=== PATIENT | female | born 1970 | race Two or more races ===

== ENCOUNTER 2022-03-08 10:27 | Emergency (ER) | payer MEDICARE, MEDICAID ==
[~2022-03-08] VITALS: Ht 154.9 cm; Wt 109.1 kg
[~2022-03-08 10:27] MED LIST: ASPI81TA52 PO; FURO40TA4 PO; INSU100C10 SQ; INSU100V9 SQ; LORA10TA7 PO; LOSA25TA96 PO; MECL-159 PO; MYCO500T PO; PANT-47 PO; PRED5TAB PO; TACR1CAP24 PO
[2022-03-08 10:57] LABS: BASOPHILS % (AUTO) 0.5 % (0-1); EOSINOPHILS # (AUTO) 0.1 X10'3 (0-0.9); EOSINOPHILS % (AUTO) 1.8 % (0-6); HEMATOCRIT 39.4 % (35.0-45.0); HEMOGLOBIN 13.3 g/dl (12.0-16.0); LYMPHOCYTES # (AUTO) 1.2 X10'3 (1.1-4.8); MEAN CORPUSCULAR HEMOGLOBIN 29.7 PG (27.0-31.0); MEAN CORPUSCULAR HGB CONC 33.6 g/dL (33.0-36.5); MEAN CORPUSCULAR VOLUME 88.4 FL (78-98); MEAN PLATELET VOLUME 8.5 FL (7.4-10.4); MONOCYTES # (AUTO) 0.5 X10'3 (0-0.9); NEUTROPHILS # (AUTO) 6.6 X10'3 (1.8-7.7); NEUTROPHILS % (AUTO) 77.7 % (42-75); PLATELET COUNT 315 X10'3 (140-440); RED BLOOD COUNT 4.46 X10'6 (4.20-5.60); RED CELL DISTRIBUTION WIDTH 14.5 % (11.5-14.5); WHITE BLOOD COUNT 8.5 X10'3 (4.5-11.0)
[2022-03-08 11:04] LABS: ALANINE AMINOTRANSFERASE 19 U/L (12-78); ALBUMIN/GLOBULIN RATIO 0.7 (1.1-1.5); ALKALINE PHOSPHATASE 123 IU/L (46-116); ANION GAP 9 (8-16); ASPARTATE AMINO TRANSFERASE 16 U/L (10-37); BILIRUBIN,TOTAL 0.4 MG/DL (0.1-1.0); BLOOD UREA NITROGEN 34 MG/DL (7-18); BUN/CREATININE RATIO 27.9 (6.6-38.0); CALCIUM 8.6 MG/DL (8.5-10.1); CHLORIDE 96 MMOL/L (99-107); CREATININE 1.22 MG/DL (0.40-0.90); GLUCOSE 237 MG/DL (70-104); LIPASE 90 U/L (73-393); POTASSIUM 3.9 MMOL/L (3.5-5.1); SODIUM 131 MMOL/L (135-145); TOTAL CARBON DIOXIDE 25.8 MMOL/L (24-32); TOTAL PROTEIN 7.6 G/DL (6.4-8.2); eGFR 46 ML/MIN
[2022-03-08 11:06] LABS: CLARITY,URINE TURBID (Clear); COLOR,URINE STRAW (Yellow); GLUCOSE, URINE NEGATIVE (Neg); KETONES,URINE NEGATIVE (Neg); LEUKOCYTE ESTERASE ,URINE LARGE (Neg); NITRITES, URINE NEGATIVE (Neg); OCCULT BLOOD,URINE SMALL (Neg); PROTEIN,URINE 100 mg/dl (Neg); UA COLLECTION TYPE CLN CATCH MIDSTREAM; UROBILINOGEN,URINE 0.2 E.U/dL (0.2-1.0)
[2022-03-08 11:19] VITALS: BP 148/76
[2022-03-08 11:23] LABS: WBC,URINE TNTC /HPF (0-4)
[2022-03-08 11:26] LABS: BACTERIA,URINE 4+ /HPF (Neg); RBC,URINE 20-50 /HPF (0-2)
[2022-03-08 11:27] LABS: SQUAMOUS EPITHELIAL CELL,UR MODERATE /LPF (FEW)
[2022-03-08 11:28] LABS: HYALINE CASTS 0-3 /LPF (NEGATIVE)
[2022-03-08] MEDS ORDERED: acetaminophen 325mg tablet PO ONE (12:10)
[2022-03-08] MEDS ORDERED: CEPH500C2 PO (12:20)
[2022-03-08] MEDS ORDERED: cephalexin 500mg capsule PO ONE (12:25)
--- NOTE | 2022-03-08 13:03 | NUR ---
Family returned call. Nephew will be coming to sisal picker pt in 15min.
== END 2022-03-08 13:58 | disposition home or self-care (01) ==
LOC: ER 10:27
DX: N39.0 Urinary tract infection, site not specified (principal); R51.9 Headache, unspecified; R10.32 Left lower quadrant pain; E11.9 Type 2 diabetes mellitus without complications; I10 Essential (primary) hypertension; Z98.890 Other specified postprocedural states; Z88.5 Allergy status to narcotic agent; Z91.040 Latex allergy status; Z88.8 Allergy status to other drugs, medicaments and biological substances; Z79.82 Long term (current) use of aspirin; Z79.2 Long term (current) use of antibiotics; Z79.4 Long term (current) use of insulin; Z79.899 Other long term (current) drug therapy
CPT/HCPCS: 36415; 80053; 81001; 82948; 83690; 85025; 87077; 87088; 87186; 99284

== ENCOUNTER 2022-03-28 10:13 | Emergency (ER) | payer MEDICARE, MEDICAID ==
[~2022-03-28] VITALS: Ht 157.5 cm; Wt 100.0 kg
[2022-03-28] MEDS ORDERED: ondansetron/PF 4mg/2ml inj IV ONE (11:05)
[2022-03-28] MEDS ORDERED: normal saline 1000ml 1,000 ML IV ONE (11:05)
[2022-03-28] MEDS ORDERED: fentaNYL/PF 50MCG/1 ML 2ML syringe IV ONE (11:05)
[2022-03-28 11:26] LABS: BASOPHILS % (AUTO) 0.5 % (0-1); EOSINOPHILS # (AUTO) 0.2 X10'3 (0-0.9); EOSINOPHILS % (AUTO) 2.2 % (0-6); HEMATOCRIT 42.2 % (35.0-45.0); HEMOGLOBIN 14.1 g/dl (12.0-16.0); LYMPHOCYTES # (AUTO) 1.7 X10'3 (1.1-4.8); LYMPHOCYTES % (AUTO) 19.2 % (21-51); MEAN CORPUSCULAR HEMOGLOBIN 29.9 PG (27.0-31.0); MEAN CORPUSCULAR HGB CONC 33.4 g/dL (33.0-36.5); MEAN CORPUSCULAR VOLUME 89.3 FL (78-98); MEAN PLATELET VOLUME 9.1 FL (7.4-10.4); MONOCYTES # (AUTO) 0.6 X10'3 (0-0.9); MONOCYTES % (AUTO) 6.9 % (2-12); NEUTROPHILS # (AUTO) 6.4 X10'3 (1.8-7.7); NEUTROPHILS % (AUTO) 71.2 % (42-75); PLATELET COUNT 336 X10'3 (140-440); RED BLOOD COUNT 4.72 X10'6 (4.20-5.60); RED CELL DISTRIBUTION WIDTH 14.1 % (11.5-14.5)
--- NOTE | 2022-03-28 11:33 | NUR ---
pt to ct
[2022-03-28 11:39] LABS: ALANINE AMINOTRANSFERASE 21 U/L (12-78); ALBUMIN 3.4 G/DL (3.4-5.0); ALBUMIN/GLOBULIN RATIO 0.8 (1.1-1.5); ALKALINE PHOSPHATASE 109 IU/L (46-116); ANION GAP 10 (8-16); ASPARTATE AMINO TRANSFERASE 15 U/L (10-37); BILIRUBIN,TOTAL 0.4 MG/DL (0.1-1.0); BLOOD UREA NITROGEN 47 MG/DL (7-18); BUN/CREATININE RATIO 34.6 (6.6-38.0); CALCIUM 9.2 MG/DL (8.5-10.1); CHLORIDE 101 MMOL/L (99-107); CREATININE 1.36 MG/DL (0.40-0.90); GLUCOSE 204 MG/DL (70-104); POTASSIUM 3.9 MMOL/L (3.5-5.1); SODIUM 135 MMOL/L (135-145); TOTAL CARBON DIOXIDE 24.4 MMOL/L (24-32); TOTAL PROTEIN 7.8 G/DL (6.4-8.2); eGFR 41 ML/MIN
[2022-03-28 11:42] LABS: LIPASE 94 U/L (73-393)
[2022-03-28 11:43] LABS: CLARITY,URINE CLEAR (Clear); COLOR,URINE YELLOW (Yellow); GLUCOSE, URINE NEGATIVE (Neg); KETONES,URINE NEGATIVE (Neg); LEUKOCYTE ESTERASE ,URINE NEGATIVE (Neg); NITRITES, URINE NEGATIVE (Neg); OCCULT BLOOD,URINE NEGATIVE (Neg); PROTEIN,URINE NEGATIVE (Neg); UROBILINOGEN,URINE 0.2 E.U/dL (0.2-1.0)
[2022-03-28 11:48] LABS: UA COLLECTION TYPE STRAIGHT CATH
--- NOTE | 2022-03-28 11:48 | NUR ---
pt back from ct
[2022-03-28] MEDS ORDERED: ONDA4TAB12 PO (13:35)
--- NOTE | 2022-03-28 13:45 | NUR ---
us at bedside
[2022-03-28] MEDS ORDERED: MECL-226 PO ×2 (14:10)
[2022-03-28 14:34] VITALS: BP 157/84
== END 2022-03-28 14:36 | disposition home or self-care (01) ==
LOC: ER 10:14
DX: R10.84 Generalized abdominal pain (principal); R51.9 Headache, unspecified; E86.0 Dehydration; E11.9 Type 2 diabetes mellitus without complications; I10 Essential (primary) hypertension; Z88.8 Allergy status to other drugs, medicaments and biological substances; Z88.5 Allergy status to narcotic agent; Z91.040 Latex allergy status; Z79.899 Other long term (current) drug therapy
CPT/HCPCS: 36415; 70450; 71045; 74176; 76770; 76776; 80053; 81003; 83605; 83690; 84484; 85025; 85610; 87040; 96361; 96374; 96375; 99285; J2405; J3010; J7030

== ENCOUNTER 2022-03-30 03:21 | Inpatient (IN) | payer MEDICARE, MEDICAID ==
[~2022-03-30] VITALS: Ht 154.9 cm; Wt 100.0 kg
[~2022-03-30 03:21] MED LIST changes: +MECL-226 PO
[2022-03-30] MEDS ORDERED: normal saline 1000ml 1,000 ML IV ONE (03:30)
[2022-03-30] MEDS ORDERED: pantoprazole 40MG/NS 100ML BAG 100 ML IV ONE (03:40)
[2022-03-30] MEDS ORDERED: ondansetron/PF 4mg/2ml inj IV ONE (03:40)
[2022-03-30] MEDS ORDERED: famotidine/PF 10 mg/ml inj IV ONE (03:40)
[2022-03-30] MEDS ORDERED: acetaminophen 325mg tablet PO ONE (03:45)
[2022-03-30 04:00] LABS: BASOPHILS # (AUTO) 0.1 X10'3 (0-0.2); BASOPHILS % (AUTO) 0.3 % (0-1); EOSINOPHILS % (AUTO) 0.3 % (0-6); HEMATOCRIT 40.8 % (35.0-45.0); HEMOGLOBIN 13.4 g/dl (12.0-16.0); LYMPHOCYTES # (AUTO) 0.4 X10'3 (1.1-4.8); LYMPHOCYTES % (AUTO) 2.7 % (21-51); MEAN CORPUSCULAR HEMOGLOBIN 29.2 PG (27.0-31.0); MEAN CORPUSCULAR HGB CONC 32.7 g/dL (33.0-36.5); MEAN CORPUSCULAR VOLUME 89.2 FL (78-98); MEAN PLATELET VOLUME 9.1 FL (7.4-10.4); MONOCYTES # (AUTO) 0.8 X10'3 (0-0.9); MONOCYTES % (AUTO) 5.2 % (2-12); NEUTROPHILS # (AUTO) 14.4 X10'3 (1.8-7.7); NEUTROPHILS % (AUTO) 91.5 % (42-75); PLATELET COUNT 298 X10'3 (140-440); RED BLOOD COUNT 4.58 X10'6 (4.20-5.60); RED CELL DISTRIBUTION WIDTH 14.2 % (11.5-14.5); WHITE BLOOD COUNT 15.8 X10'3 (4.5-11.0)
[2022-03-30 04:08] LABS: ALANINE AMINOTRANSFERASE 29 U/L (12-78); ALBUMIN 3.3 G/DL (3.4-5.0); ALBUMIN/GLOBULIN RATIO 0.8 (1.1-1.5); ALKALINE PHOSPHATASE 112 IU/L (46-116); ANION GAP 12 (8-16); BILIRUBIN,TOTAL 0.9 MG/DL (0.1-1.0); BLOOD UREA NITROGEN 39 MG/DL (7-18); BUN/CREATININE RATIO 25.8 (6.6-38.0); CHLORIDE 98 MMOL/L (99-107); CREATININE 1.51 MG/DL (0.40-0.90); GLUCOSE 243 MG/DL (70-104); SODIUM 131 MMOL/L (135-145); TOTAL PROTEIN 7.5 G/DL (6.4-8.2); eGFR 36 ML/MIN
[2022-03-30 04:11] LABS: LIPASE 63 U/L (73-393)
[2022-03-30 04:25] LABS: POTASSIUM 4.1 MMOL/L (3.5-5.1)
[2022-03-30 04:27] LABS: ASPARTATE AMINO TRANSFERASE 45 U/L (10-37)
[2022-03-30] MEDS ORDERED: meclizine 12.5mg tablet PO ONE (04:40)
[2022-03-30 04:44] LABS: URINE HCG NEGATIVE (NEG)
[2022-03-30 05:03] LABS: CLARITY,URINE CLOUDY (Clear); COLOR,URINE YELLOW (Yellow); GLUCOSE, URINE NEGATIVE (Neg); KETONES,URINE NEGATIVE (Neg); LEUKOCYTE ESTERASE ,URINE LARGE (Neg); NITRITES, URINE NEGATIVE (Neg); OCCULT BLOOD,URINE MODERATE (Neg); PH,URINE 5.5 (4.8-8.0); PROTEIN,URINE 100 mg/dl (Neg); UROBILINOGEN,URINE 0.2 E.U/dL (0.2-1.0)
[2022-03-30 05:16] LABS: UA COLLECTION TYPE NON-SPECIFIED
[2022-03-30 05:17] LABS: WBC,URINE TNTC /HPF (0-4)
[2022-03-30 05:18] LABS: BACTERIA,URINE 3+ /HPF (Neg); MUCUS STRANDS NONE SEEN /LPF (Neg); SQUAMOUS EPITHELIAL CELL,UR FEW /LPF (FEW)
[2022-03-30] MEDS ORDERED: MECL-159 PO (10:28)
[2022-03-30] MEDS ORDERED: ondansetron 4mg rapidly disintigrating tab PO PRN (11:50)
[2022-03-30] MEDS ORDERED: magnesium 4gm in 100ml NS 100 ML IV PRN (11:50)
[2022-03-30] MEDS: normal saline 1000ml 1,000 ML IV SCH ×2 (11:50→21:15)
[2022-03-30] MEDS ORDERED: magnesium 2GM in 50ml NS 50 ML IV PRN (11:50)
[2022-03-30] MEDS ORDERED: potassium CL 10mEq/100ml bag 100 ML IV PRN (11:50)
[2022-03-30] MEDS ORDERED: acetaminophen 650mg rectal suppository RC PRN (11:50)
[2022-03-30] MEDS ORDERED: magnesium hydroxide 30ml (MOM) UD suspension PO PRN (11:50)
[2022-03-30] MEDS ORDERED: mag hydrox/Alum hydrox/simeth 30ml oral suspension PO PRN (11:50)
[2022-03-30] MEDS ORDERED: cefTRIAXone 1g/NS 100ml IVPB 100 ML IV ONE (11:50)
[2022-03-30] MEDS ORDERED: POTASSIUM BICARB 20meq eff tab 20 MEQ TABLET.EFF PO PRN ×2 (11:50)
[2022-03-30] MEDS ORDERED: HYDROcodone/acetaminophen 5mg/325mg tablet PO PRN (11:50)
[2022-03-30] MEDS ORDERED: acetaminophen 325mg tablet PO PRN ×2 (11:50)
[2022-03-30] MEDS ORDERED: magnesium Cl slow-release 64mg tablet PO PRN (11:50)
[2022-03-30 12:33] LABS: MAGNESIUM 1.7 MG/DL (1.5-2.4)
[2022-03-30 12:40] LABS: POTASSIUM 4.5 MMOL/L (3.5-5.1)
[2022-03-30] MEDS ORDERED: PRE5T PO (13:36)
[2022-03-30] MEDS ORDERED: DEXTROSE 15 GM of carb/4 tabs (each vial/BOTTLE has 4 tablets) PO PRN (13:45)
[2022-03-30] MEDS ORDERED: glucagon, human recombinant 1mg kit SUBCUT PRN (13:45)
[2022-03-30] MEDS ORDERED: MESSAGE TO PHARMACY PO ONE (13:45)
[2022-03-30] MEDS ORDERED: dextrose 50%-water 50ml dispensing syringe IV PRN ×2 (13:45)
[2022-03-30 15:28] LABS: HEMOGLOBIN A1C 6.3 % (4.5-6.2)
[2022-03-30] MEDS: K and/or MAG REPLACEMENT MC SCH (19:31)
[2022-03-30] MEDS ORDERED: temazepam 15mg capsule PO PRN (21:00)
[2022-03-30] MEDS ORDERED: insulin glargine (Lantus) pen - multi-dose SQ SCH ×2 (21:00)
[2022-03-30] MEDS: tacrolimus anhydrous 1mg capsule PO SCH (21:13)
[2022-03-30] MEDS: docusate sod 100mg capsule PO SCH (21:13)
[2022-03-30] MEDS: mycophenolate mofetil 250mg capsule PO SCH (21:14)
[2022-03-30] MEDS: heparin, porcine 5000 units/ml vial SQ SCH (21:15)
[2022-03-30] MEDS: insulin Lispro (HumaLOG) vial - multi-dose SQ SCH (21:41)
--- NOTE | 2022-03-30 22:00 | NUR ---
Patient cleaned up, replaced bedding with clean linens, provided warm blankets and fresh water.
[2022-03-31 01:46] LABS: BASOPHILS % (AUTO) 0.3 % (0-1); EOSINOPHILS # (AUTO) 0.1 X10'3 (0-0.9); EOSINOPHILS % (AUTO) 0.5 % (0-6); HEMATOCRIT 36.2 % (35.0-45.0); HEMOGLOBIN 12.1 g/dl (12.0-16.0); LYMPHOCYTES % (AUTO) 6.6 % (21-51); MEAN CORPUSCULAR HEMOGLOBIN 30.1 PG (27.0-31.0); MEAN CORPUSCULAR HGB CONC 33.4 g/dL (33.0-36.5); MEAN PLATELET VOLUME 8.8 FL (7.4-10.4); MONOCYTES # (AUTO) 1.1 X10'3 (0-0.9); MONOCYTES % (AUTO) 7.7 % (2-12); NEUTROPHILS # (AUTO) 12.5 X10'3 (1.8-7.7); NEUTROPHILS % (AUTO) 84.9 % (42-75); PLATELET COUNT 241 X10'3 (140-440); RED BLOOD COUNT 4.02 X10'6 (4.20-5.60); WHITE BLOOD COUNT 14.7 X10'3 (4.5-11.0)
[2022-03-31 02:06] LABS: ALANINE AMINOTRANSFERASE 25 U/L (12-78); ALBUMIN 2.5 G/DL (3.4-5.0); ALBUMIN/GLOBULIN RATIO 0.7 (1.1-1.5); ALKALINE PHOSPHATASE 101 IU/L (46-116); ANION GAP 10 (8-16); ASPARTATE AMINO TRANSFERASE 52 U/L (10-37); BILIRUBIN,TOTAL 0.5 MG/DL (0.1-1.0); BLOOD UREA NITROGEN 36 MG/DL (7-18); BUN/CREATININE RATIO 24.2 (6.6-38.0); CALCIUM 8.1 MG/DL (8.5-10.1); CHLORIDE 105 MMOL/L (99-107); CREATININE 1.49 MG/DL (0.40-0.90); GLUCOSE 281 MG/DL (70-104); POTASSIUM 3.9 MMOL/L (3.5-5.1); SODIUM 134 MMOL/L (135-145); TOTAL CARBON DIOXIDE 19.1 MMOL/L (24-32); TOTAL PROTEIN 6.3 G/DL (6.4-8.2); eGFR 36 ML/MIN
--- NOTE | 2022-03-31 03:18 | NUR ---
Patient placed on bed cortez, taken off, and cleaned up. Moved from ER rponca and onto hospital bed.
[2022-03-31] MEDS: piperacillin/tazo 3.375gm/50ml 50 ML IV SCH ×3 (06:06→21:57)
[2022-03-31] MEDS ORDERED: cefTRIAXone 1g/NS 100ml IVPB 100 ML IV SCH (08:00)
[2022-03-31] MEDS: predniSONE 5mg tablet PO SCH (08:05)
[2022-03-31] MEDS: aspirin 81mg, enteric-coated 1 TAB TABLET.DR PO SCH (08:05)
[2022-03-31] MEDS: pantoprazole 40mg Tablet.DR PO SCH (08:05)
[2022-03-31] MEDS: furosemide 40mg tablet PO SCH (08:06)
[2022-03-31] MEDS: docusate sod 100mg capsule PO SCH ×2 (08:06→20:57)
[2022-03-31] MEDS: heparin, porcine 5000 units/ml vial SQ SCH ×2 (08:09→21:00)
[2022-03-31] MEDS: losartan 25mg tablet PO SCH (08:10)
[2022-03-31] MEDS: loratadine 10mg tablet PO SCH (08:10)
[2022-03-31] MEDS: tacrolimus anhydrous 1mg capsule PO SCH ×2 (08:12→20:58)
[2022-03-31] MEDS: normal saline 1000ml 1,000 ML IV SCH ×2 (08:12→19:54)
[2022-03-31] MEDS: K and/or MAG REPLACEMENT MC SCH ×2 (08:31→20:00)
[2022-03-31 09:05] VITALS: BP 150/69
[2022-03-31] MEDS: mycophenolate mofetil 250mg capsule PO SCH ×2 (09:35→20:58)
[2022-03-31] MEDS: insulin Lispro (HumaLOG) vial - multi-dose SQ SCH ×3 (10:43→17:27)
[2022-03-31] MEDS: insulin glargine (Lantus) pen - multi-dose SQ SCH (10:49)
--- NOTE | 2022-03-31 10:50 | NUR ---
New orders from Dr. Rodriguez to change timing of lantus administration to every morning.
--- NOTE | 2022-03-31 10:55 | NUR ---
taken at 0900 by NATALI Wilkes. Addendum: 03/31/22 at 1056 by Jenn Dodge RN Amended: Links added.
[2022-03-31] MEDS ORDERED: bisacodyl 10mg suppository rectal RC STA (12:25)
[2022-03-31 12:30] VITALS: BP 147/69
[2022-03-31 15:58] VITALS: BP 141/70
--- NOTE | 2022-03-31 18:30 | NUR ---
Transported patient to Ortho/Neuro room 4824D. Report given to Beatris STEWART at the bedside. Beatris assumed care.
--- NOTE | 2022-03-31 19:00 | NUR ---
Pt. arrived on the floor via hospital bed accompanied by Jenn STEWART. Pt. A & O at this time denies c/o pain. Call light within reach and bed in low position. Addendum: 03/31/22 at 1936 by Beatris Jett RN Amended: Links added.
[2022-03-31] MEDS: cefepime 1GM/NS ADD-VANTAGE 100 ML IV SCH (20:57)
[2022-03-31 22:00] VITALS: BP 153/53
[2022-04-01] MEDS: normal saline 1000ml 1,000 ML IV SCH ×2 (03:50→20:23)
[2022-04-01] MEDS: piperacillin/tazo 3.375gm/50ml 50 ML IV SCH (04:25)
[2022-04-01 05:30] VITALS: BP 163/73
--- NOTE | 2022-04-01 06:30 | NUR ---
Problems reprioritized. Patient report given, questions answered & plan of care reviewed with Thea. Addendum: 04/01/22 at 0644 by Beatris Jett RN Amended: Links added.
--- NOTE | 2022-04-01 06:30 | NUR ---
Patient in room ORTHO 4012. I have received report from PAT Spear and had the opportunity to ask questions and assume patient care.
[2022-04-01 10:00] VITALS: BP 160/72
[2022-04-01] MEDS: docusate sod 100mg capsule PO SCH ×2 (10:16→20:23)
[2022-04-01 10:19] LABS: BASOPHILS % (AUTO) 0.3 % (0-1); EOSINOPHILS # (AUTO) 0.2 X10'3 (0-0.9); EOSINOPHILS % (AUTO) 2.7 % (0-6); HEMATOCRIT 35.4 % (35.0-45.0); HEMOGLOBIN 11.9 g/dl (12.0-16.0); LYMPHOCYTES # (AUTO) 0.8 X10'3 (1.1-4.8); LYMPHOCYTES % (AUTO) 10.5 % (21-51); MEAN CORPUSCULAR HEMOGLOBIN 30.2 PG (27.0-31.0); MEAN CORPUSCULAR HGB CONC 33.5 g/dL (33.0-36.5); MEAN CORPUSCULAR VOLUME 90.2 FL (78-98); MEAN PLATELET VOLUME 9.3 FL (7.4-10.4); MONOCYTES # (AUTO) 0.8 X10'3 (0-0.9); MONOCYTES % (AUTO) 11.2 % (2-12); NEUTROPHILS # (AUTO) 5.7 X10'3 (1.8-7.7); NEUTROPHILS % (AUTO) 75.3 % (42-75); PLATELET COUNT 217 X10'3 (140-440); RED BLOOD COUNT 3.93 X10'6 (4.20-5.60); WHITE BLOOD COUNT 7.5 X10'3 (4.5-11.0)
[2022-04-01] MEDS: tacrolimus anhydrous 1mg capsule PO SCH ×2 (10:35→20:22)
[2022-04-01] MEDS: losartan 25mg tablet PO SCH (10:35)
[2022-04-01] MEDS: cefepime 1GM/NS ADD-VANTAGE 100 ML IV SCH (10:36)
[2022-04-01] MEDS: pantoprazole 40mg Tablet.DR PO SCH (10:36)
[2022-04-01] MEDS: mycophenolate mofetil 250mg capsule PO SCH ×2 (10:36→20:22)
[2022-04-01] MEDS: loratadine 10mg tablet PO SCH (10:36)
[2022-04-01] MEDS: aspirin 81mg, enteric-coated 1 TAB TABLET.DR PO SCH (10:36)
[2022-04-01] MEDS: predniSONE 5mg tablet PO SCH (10:36)
[2022-04-01] MEDS: furosemide 40mg tablet PO SCH (10:36)
[2022-04-01] MEDS: heparin, porcine 5000 units/ml vial SQ SCH ×2 (10:37→20:22)
[2022-04-01 10:41] LABS: ALANINE AMINOTRANSFERASE 19 U/L (12-78); ALBUMIN 2.4 G/DL (3.4-5.0); ALBUMIN/GLOBULIN RATIO 0.6 (1.1-1.5); ALKALINE PHOSPHATASE 104 IU/L (46-116); ANION GAP 12 (8-16); ASPARTATE AMINO TRANSFERASE 34 U/L (10-37); BILIRUBIN,TOTAL 0.5 MG/DL (0.1-1.0); BLOOD UREA NITROGEN 23 MG/DL (7-18); BUN/CREATININE RATIO 17.3 (6.6-38.0); CALCIUM 8.4 MG/DL (8.5-10.1); CHLORIDE 106 MMOL/L (99-107); CREATININE 1.33 MG/DL (0.40-0.90); GLUCOSE 237 MG/DL (70-104); MAGNESIUM 1.9 MG/DL (1.5-2.4); POTASSIUM 3.9 MMOL/L (3.5-5.1); SODIUM 137 MMOL/L (135-145); TOTAL CARBON DIOXIDE 19.2 MMOL/L (24-32); TOTAL PROTEIN 6.4 G/DL (6.4-8.2); eGFR 42 ML/MIN
[2022-04-01] MEDS: insulin Lispro (HumaLOG) vial - multi-dose SQ SCH ×3 (10:41→17:58)
[2022-04-01] MEDS: insulin glargine (Lantus) pen - multi-dose SQ SCH (10:42)
[2022-04-01] MEDS: K and/or MAG REPLACEMENT MC SCH ×2 (12:00→20:00)
[2022-04-01] MEDS ORDERED: bisacodyl 10mg suppository rectal RC PRN (12:25)
--- NOTE | 2022-04-01 13:30 | NUR ---
Gaurang Consult: Tristan Merlos 12 w/ skin intact per EMR. Addendum: 04/01/22 at [address] Amended: Links added.
--- NOTE | 2022-04-01 13:46 | NUR ---
PRESSURE ULCER EDUCATION: DEFINITION: A pressure ulcer is an area of skin that breaks down when you stay in one position too long. The constant pressure against the skin reduces the blood flow to that area and the affected tissue dies. CAUSES: "Being bedridden or in a wheelchair "Fragile skin "Having a chronic condition, such as diabetes or vascular disease "Inability to move certain parts of your body without assistance "Older age "Incontinence of urine or stool SYMPTOMS: "A reddened area that DOES NOT turn white when pressed on - this can be the beginning of a pressure ulcer "A blister, deep sore or a crater - these can be advanced pressure ulcers FIRST AID: "Relieve the pressure on this area "Keep the area clean and dry "Call your primary doctor if you see any of the above symptoms "DO NOT massage the area "DO NOT use a donut shaped or ring shaped pillow- these actually interfere with the blood flow and cause complications PREVENTION: "Check for pressure ulcers everyday "Change position at least every two hours to relieve pressure "Use items that help relieve pressure- pillows, sheepskin, foam padding, and powders. "Keep skin clean and dry "Eat healthy well balanced meals "Exercise daily IF YOU SEE ANY OF THESE SYMPTOMS WHILE IN THE HOSPITAL - TELL YOUR NURSE IMMEDIATELY. IF YOU SEE ANY OF THESE SYMPTOMS WHILE AT HOME OR HAVE ANY QUESTIONS OR CONCERNS ABOUT PRESSURE ULCERS - CALL YOUR PRIMARY DOCTOR IMMEDIATELY. Addendum: 04/01/22 at 1346 by Rocio Finley LVN Amended: Links added.
[2022-04-01 17:00] VITALS: BP 158/69
--- NOTE | 2022-04-01 18:40 | NUR ---
Problems reprioritized. Patient report given, questions answered & plan of care reviewed with PAT Salgado.
--- NOTE | 2022-04-01 18:43 | NUR ---
Patient in room ORTHO 4012 a. I have received report from christine castillo and had the opportunity to ask questions and assume patient care.
[2022-04-01] MEDS: mineral oil/petrolatum, white cream 113gm jar TP SCH (20:23)
[2022-04-01] MEDS ORDERED: nystatin 15 GM powder TP SCH (21:00)
[2022-04-01] MEDS: HYDROcodone/acetaminophen 10/325mg tab PO PRN (21:19)
[2022-04-01 22:00] VITALS: BP 165/69
[2022-04-02] MEDS: normal saline 1000ml 1,000 ML IV SCH ×3 (04:24→19:50)
[2022-04-02 05:30] VITALS: BP 178/74
--- NOTE | 2022-04-02 06:25 | NUR ---
Patient in room ORTHO 4012. I have received report from Sofia RN & Naomi RN and had the opportunity to ask questions and assume patient care.
--- NOTE | 2022-04-02 06:28 | NUR ---
Problems reprioritized. Patient report given, questions answered & plan of care reviewed with christine rn.
[2022-04-02] MEDS: ondansetron/PF 4mg/2ml inj IV PRN (06:34)
[2022-04-02 07:42] LABS: ALANINE AMINOTRANSFERASE 13 U/L (12-78); ALBUMIN 2.4 G/DL (3.4-5.0); ALBUMIN/GLOBULIN RATIO 0.6 (1.1-1.5); ALKALINE PHOSPHATASE 102 IU/L (46-116); ANION GAP 11 (8-16); BILIRUBIN,TOTAL 0.4 MG/DL (0.1-1.0); BLOOD UREA NITROGEN 20 MG/DL (7-18); BUN/CREATININE RATIO 19.2 (6.6-38.0); CALCIUM 8.7 MG/DL (8.5-10.1); CHLORIDE 106 MMOL/L (99-107); CREATININE 1.04 MG/DL (0.40-0.90); GLUCOSE 168 MG/DL (70-104); MAGNESIUM 1.6 MG/DL (1.5-2.4); SODIUM 135 MMOL/L (135-145); TOTAL CARBON DIOXIDE 18.1 MMOL/L (24-32); TOTAL PROTEIN 6.6 G/DL (6.4-8.2); eGFR 55 ML/MIN
[2022-04-02 07:46] LABS: ASPARTATE AMINO TRANSFERASE 34 U/L (10-37); POTASSIUM 4.4 MMOL/L (3.5-5.1)
[2022-04-02] MEDS: K and/or MAG REPLACEMENT MC SCH ×2 (07:55→20:42)
[2022-04-02] MEDS: docusate sod 100mg capsule PO SCH ×2 (07:55→20:29)
[2022-04-02] MEDS: mineral oil/petrolatum, white cream 113gm jar TP SCH ×2 (08:56→20:28)
[2022-04-02] MEDS: cefepime 1GM/NS ADD-VANTAGE 100 ML IV SCH (08:56)
[2022-04-02] MEDS: mycophenolate mofetil 250mg capsule PO SCH ×2 (09:01→20:29)
[2022-04-02] MEDS: predniSONE 5mg tablet PO SCH (09:02)
[2022-04-02] MEDS: aspirin 81mg, enteric-coated 1 TAB TABLET.DR PO SCH (09:02)
[2022-04-02] MEDS: pantoprazole 40mg Tablet.DR PO SCH (09:02)
[2022-04-02] MEDS: tacrolimus anhydrous 1mg capsule PO SCH ×2 (09:02→20:29)
[2022-04-02] MEDS: loratadine 10mg tablet PO SCH (09:02)
[2022-04-02] MEDS: furosemide 40mg tablet PO SCH (09:02)
[2022-04-02] MEDS: heparin, porcine 5000 units/ml vial SQ SCH ×2 (09:03→20:30)
[2022-04-02] MEDS: losartan 25mg tablet PO SCH (09:03)
[2022-04-02] MEDS: HYDROcodone/acetaminophen 10/325mg tab PO PRN (09:04)
[2022-04-02] MEDS: insulin Lispro (HumaLOG) vial - multi-dose SQ SCH ×2 (09:09→14:20)
[2022-04-02] MEDS: insulin glargine (Lantus) pen - multi-dose SQ SCH (09:10)
[2022-04-02] MEDS: nystatin 15 GM powder TP SCH ×2 (09:11→20:29)
[2022-04-02 09:15] LABS: BASOPHILS % (AUTO) 0.5 % (0-1); EOSINOPHILS # (AUTO) 0.3 X10'3 (0-0.9); EOSINOPHILS % (AUTO) 4.8 % (0-6); HEMATOCRIT 36.5 % (35.0-45.0); HEMOGLOBIN 12.1 g/dl (12.0-16.0); LYMPHOCYTES # (AUTO) 1.3 X10'3 (1.1-4.8); LYMPHOCYTES % (AUTO) 23.6 % (21-51); MEAN CORPUSCULAR HEMOGLOBIN 29.5 PG (27.0-31.0); MEAN CORPUSCULAR VOLUME 89.3 FL (78-98); MEAN PLATELET VOLUME 8.9 FL (7.4-10.4); MONOCYTES # (AUTO) 0.7 X10'3 (0-0.9); MONOCYTES % (AUTO) 12.6 % (2-12); NEUTROPHILS # (AUTO) 3.2 X10'3 (1.8-7.7); NEUTROPHILS % (AUTO) 58.5 % (42-75); PLATELET COUNT 242 X10'3 (140-440); RED BLOOD COUNT 4.09 X10'6 (4.20-5.60); WHITE BLOOD COUNT 5.5 X10'3 (4.5-11.0)
[2022-04-02 10:00] VITALS: BP 157/55
--- NOTE | 2022-04-02 13:20 | NUR ---
Problems reprioritized. Patient report given, questions answered & plan of care reviewed with PAT Saravia.
--- NOTE | 2022-04-02 14:00 | NUR ---
Problems reprioritized. Patient report given, questions answered & plan of care reviewed with Michelle RN.
[2022-04-02 17:00] VITALS: BP 144/81
[2022-04-02 22:00] VITALS: BP_SYST 184; BP_SYST 197; BP_DIAS 56; BP_DIAS 77
[2022-04-02 22:05] VITALS: BP 195/73
[2022-04-02] MEDS ORDERED: losartan 25mg tablet PO ONE (23:00)
--- NOTE | 2022-04-02 23:13 | NUR ---
FILTER PULP WASHER alerted primary nurse pts bp elevated: 184/79, 197/56. primary nurse retook pts BP 195/73. notifed new orderes recieved for one time dose of cozzar 12.5 mg po give now, and dc ns fluids 100/ml. pt denies any c/o pain, no s/s of distress, pt relaxing in bed. pt aware of new orders.
[2022-04-03] VITALS (7 sets, daily range): BP systolic 148–195; BP diastolic 68–83
--- NOTE | 2022-04-03 06:21 | NUR ---
Problems reprioritized. Patient report given, questions answered & plan of care reviewed with Manjit RN.
[2022-04-03 06:43] LABS: BASOPHILS % (AUTO) 0.3 % (0-1); EOSINOPHILS # (AUTO) 0.2 X10'3 (0-0.9); EOSINOPHILS % (AUTO) 4.4 % (0-6); HEMOGLOBIN 12.8 g/dl (12.0-16.0); LYMPHOCYTES # (AUTO) 1.4 X10'3 (1.1-4.8); LYMPHOCYTES % (AUTO) 29.3 % (21-51); MEAN CORPUSCULAR HEMOGLOBIN 29.6 PG (27.0-31.0); MEAN CORPUSCULAR HGB CONC 33.6 g/dL (33.0-36.5); MEAN CORPUSCULAR VOLUME 87.9 FL (78-98); MEAN PLATELET VOLUME 8.9 FL (7.4-10.4); MONOCYTES # (AUTO) 0.6 X10'3 (0-0.9); MONOCYTES % (AUTO) 11.9 % (2-12); NEUTROPHILS # (AUTO) 2.6 X10'3 (1.8-7.7); NEUTROPHILS % (AUTO) 54.1 % (42-75); PLATELET COUNT 262 X10'3 (140-440); RED BLOOD COUNT 4.32 X10'6 (4.20-5.60); RED CELL DISTRIBUTION WIDTH 14.2 % (11.5-14.5); WHITE BLOOD COUNT 4.8 X10'3 (4.5-11.0)
[2022-04-03 06:57] LABS: ALANINE AMINOTRANSFERASE 20 U/L (12-78); ALBUMIN 2.5 G/DL (3.4-5.0); ALBUMIN/GLOBULIN RATIO 0.6 (1.1-1.5); ALKALINE PHOSPHATASE 96 IU/L (46-116); ANION GAP 10 (8-16); ASPARTATE AMINO TRANSFERASE 25 U/L (10-37); BILIRUBIN,TOTAL 0.3 MG/DL (0.1-1.0); BLOOD UREA NITROGEN 16 MG/DL (7-18); BUN/CREATININE RATIO 14.8 (6.6-38.0); CALCIUM 8.5 MG/DL (8.5-10.1); CHLORIDE 103 MMOL/L (99-107); CREATININE 1.08 MG/DL (0.40-0.90); GLUCOSE 316 MG/DL (70-104); MAGNESIUM 1.3 MG/DL (1.5-2.4); SODIUM 136 MMOL/L (135-145); TOTAL CARBON DIOXIDE 22.8 MMOL/L (24-32); TOTAL PROTEIN 6.7 G/DL (6.4-8.2); eGFR 53 ML/MIN
[2022-04-03 06:58] LABS: POTASSIUM 4.1 MMOL/L (3.5-5.1)
--- NOTE | 2022-04-03 07:13 | NUR ---
Patient in room ORTHO 4012. I have received report from Naomi STEWART and had the opportunity to ask questions and assume patient care.
[2022-04-03] MEDS: cefepime 1GM/NS ADD-VANTAGE 100 ML IV SCH (08:00)
[2022-04-03] MEDS: K and/or MAG REPLACEMENT MC SCH ×2 (08:00→21:34)
--- NOTE | 2022-04-03 08:22 | NUR ---
Initial: Pt admitted w/ Sepsis secondary to UTI per EMR. Currently on Carb Control/Heart Healthy diet w/ low intake avg 0-25% of meals not meeting needs. Recommend liberalizing to Regular diet given poor PO intake, A1c 6.3, no significant cardiac hx in EMR. 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 Also recommend Ensure Enlive TID to assit w/ meeting needs. LBM 04/01 receiving routine colace. Will continue to monitor. Recs: 1. Liberalize to Regular diet 2. Ensure Enlive TID; pending MD verification 3. Bowel care per rx 4. Scaled wts Addendum: 04/03/22 at [address] Amended: Links added.
[2022-04-03] MEDS: insulin glargine (Lantus) pen - multi-dose SQ SCH (09:20)
[2022-04-03] MEDS: insulin Lispro (HumaLOG) vial - multi-dose SQ SCH ×3 (09:22→19:02)
[2022-04-03] MEDS: mycophenolate mofetil 250mg capsule PO SCH ×2 (09:24→10:14)
[2022-04-03] MEDS: tacrolimus anhydrous 1mg capsule PO SCH ×2 (09:25→21:37)
[2022-04-03] MEDS: docusate sod 100mg capsule PO SCH ×2 (09:25→21:34)
[2022-04-03] MEDS: loratadine 10mg tablet PO SCH (09:26)
[2022-04-03] MEDS: pantoprazole 40mg Tablet.DR PO SCH (09:28)
[2022-04-03] MEDS: aspirin 81mg, enteric-coated 1 TAB TABLET.DR PO SCH (09:28)
[2022-04-03] MEDS: losartan 25mg tablet PO SCH (09:28)
[2022-04-03] MEDS: furosemide 40mg tablet PO SCH (09:29)
[2022-04-03] MEDS: predniSONE 5mg tablet PO SCH (09:29)
[2022-04-03] MEDS: heparin, porcine 5000 units/ml vial SQ SCH ×2 (09:36→21:36)
[2022-04-03] MEDS: nystatin 15 GM powder TP SCH ×2 (09:37→21:37)
[2022-04-03] MEDS: mineral oil/petrolatum, white cream 113gm jar TP SCH ×2 (09:37→21:37)
[2022-04-03] MEDS: lactose-reduced food (Ensure Enlive) - 237ml bottle PO SCH (18:00)
--- NOTE | 2022-04-03 18:40 | NUR ---
Patient in room ORTHO 4012. I have received report from Manjit STEWART and had the opportunity to ask questions and assume patient care.
--- NOTE | 2022-04-03 18:55 | NUR ---
Problems reprioritized. Patient report given, questions answered & plan of care reviewed with Ana STEWART.
[2022-04-03] MEDS ORDERED: magnesium 4gm in 100ml NS 100 ML IV PRN (21:30)
[2022-04-03] MEDS ORDERED: potassium CL 10mEq/100ml bag 100 ML IV PRN (21:30)
[2022-04-03] MEDS ORDERED: magnesium 2GM in 50ml NS 50 ML IV PRN (21:30)
[2022-04-03] MEDS ORDERED: POTASSIUM BICARB 20meq eff tab 20 MEQ TABLET.EFF PO PRN ×2 (21:30)
[2022-04-03] MEDS: magnesium Cl slow-release 64mg tablet PO PRN (22:02)
--- NOTE | 2022-04-04 05:05 | NUR ---
Called MD with regard to extremely high BP of 222/64, recheck was 197/62, tried a manual x3 but could not hear it. Retook on machine, was 170/71,79 and 181/81,77. Order to give the randa BP med early.
[2022-04-04] MEDS: losartan 25mg tablet PO SCH (05:15)
[2022-04-04 06:00] VITALS: BP 186/75
[2022-04-04 06:25] LABS: BASOPHILS % (AUTO) 0.2 % (0-1); EOSINOPHILS # (AUTO) 0.2 X10'3 (0-0.9); HEMATOCRIT 36.5 % (35.0-45.0); HEMOGLOBIN 12.1 g/dl (12.0-16.0); LYMPHOCYTES # (AUTO) 2.1 X10'3 (1.1-4.8); LYMPHOCYTES % (AUTO) 34.3 % (21-51); MEAN CORPUSCULAR HEMOGLOBIN 29.1 PG (27.0-31.0); MEAN CORPUSCULAR HGB CONC 33.3 g/dL (33.0-36.5); MEAN CORPUSCULAR VOLUME 87.6 FL (78-98); MEAN PLATELET VOLUME 8.8 FL (7.4-10.4); MONOCYTES # (AUTO) 0.7 X10'3 (0-0.9); NEUTROPHILS # (AUTO) 3.1 X10'3 (1.8-7.7); NEUTROPHILS % (AUTO) 50.5 % (42-75); PLATELET COUNT 285 X10'3 (140-440); RED BLOOD COUNT 4.17 X10'6 (4.20-5.60); RED CELL DISTRIBUTION WIDTH 13.6 % (11.5-14.5); WHITE BLOOD COUNT 6.1 X10'3 (4.5-11.0)
[2022-04-04 06:30] LABS: ALANINE AMINOTRANSFERASE 19 U/L (12-78); ALBUMIN 2.6 G/DL (3.4-5.0); ALBUMIN/GLOBULIN RATIO 0.7 (1.1-1.5); ALKALINE PHOSPHATASE 90 IU/L (46-116); ANION GAP 10 (8-16); ASPARTATE AMINO TRANSFERASE 23 U/L (10-37); BILIRUBIN,TOTAL 0.3 MG/DL (0.1-1.0); BLOOD UREA NITROGEN 20 MG/DL (7-18); BUN/CREATININE RATIO 18.2 (6.6-38.0); CALCIUM 8.8 MG/DL (8.5-10.1); CHLORIDE 105 MMOL/L (99-107); GLUCOSE 199 MG/DL (70-104); POTASSIUM 3.8 MMOL/L (3.5-5.1); SODIUM 138 MMOL/L (135-145); TOTAL CARBON DIOXIDE 23.5 MMOL/L (24-32); TOTAL PROTEIN 6.4 G/DL (6.4-8.2); eGFR 52 ML/MIN
--- NOTE | 2022-04-04 06:30 | NUR ---
Problems reprioritized. Patient report given, questions answered & plan of care reviewed with Manjit RN.
--- NOTE | 2022-04-04 07:03 | NUR ---
Patient in room ORTHO 4012. I have received report from Ana STEWART and had the opportunity to ask questions and assume patient care.
[2022-04-04 07:07] LABS: MAGNESIUM 1.4 MG/DL (1.5-2.4)
[2022-04-04] MEDS: lactose-reduced food (Ensure Enlive) - 237ml bottle PO SCH ×3 (08:00→18:00)
[2022-04-04] MEDS: K and/or MAG REPLACEMENT MC SCH ×4 (08:00→20:00)
[2022-04-04] MEDS: insulin glargine (Lantus) pen - multi-dose SQ SCH ×2 (08:00→21:00)
[2022-04-04] MEDS: docusate sod 100mg capsule PO SCH ×2 (08:56→20:00)
[2022-04-04] MEDS: furosemide 40mg tablet PO SCH (08:56)
[2022-04-04] MEDS: pantoprazole 40mg Tablet.DR PO SCH (08:56)
[2022-04-04] MEDS: loratadine 10mg tablet PO SCH (08:57)
[2022-04-04] MEDS: aspirin 81mg, enteric-coated 1 TAB TABLET.DR PO SCH (08:57)
[2022-04-04] MEDS: predniSONE 5mg tablet PO SCH (08:57)
[2022-04-04] MEDS: mycophenolate mofetil 250mg capsule PO SCH ×2 (08:59→21:17)
[2022-04-04] MEDS: tacrolimus anhydrous 1mg capsule PO SCH ×2 (08:59→21:19)
[2022-04-04] MEDS: insulin Lispro (HumaLOG) vial - multi-dose SQ SCH ×4 (09:01→18:55)
[2022-04-04] MEDS: cefepime 1GM/NS ADD-VANTAGE 100 ML IV SCH (09:07)
[2022-04-04] MEDS: nystatin 15 GM powder TP SCH ×2 (09:11→21:20)
[2022-04-04] MEDS: mineral oil/petrolatum, white cream 113gm jar TP SCH ×2 (09:11→21:20)
[2022-04-04] MEDS: heparin, porcine 5000 units/ml vial SQ SCH ×2 (09:15→21:21)
--- NOTE | 2022-04-04 09:28 | NUR ---
Message: Manjit Huggins [id number] re:[id number] Rashaun Negrete Patient states she takes a give of 20 Units Lantus in AM at this time she is on sliding scale and is uncontrolled. Thanks
[2022-04-04 10:00] VITALS: BP 162/68
[2022-04-04] MEDS: cefazolin/dext.iso 2gm/100ml 100 ML IV SCH ×2 (16:09→23:39)
[2022-04-04 18:00] VITALS: BP 98/93
--- NOTE | 2022-04-04 18:25 | NUR ---
Problems reprioritized. Patient report given, questions answered & plan of care reviewed with KAMALA STEWART.
--- NOTE | 2022-04-04 18:40 | NUR ---
Patient in room ORTHO 4012. I have received report from Manjit STEWART and had the opportunity to ask questions and assume patient care.
[2022-04-04] MEDS: magnesium Cl slow-release 64mg tablet PO PRN (21:14)
[2022-04-04] MEDS: DEXTROSE 15 GM of carb/4 tabs (each vial/BOTTLE has 4 tablets) PO PRN (21:32)
[2022-04-04 22:00] VITALS: BP 147/69
--- NOTE | 2022-04-04 23:25 | NUR ---
Earlier this evening when HS blood sugar checked, patient was 62. Per protocol, gave 4 glucose tabs and rechecked in 15 mins. Blood sugar has risen from 62 to 69. Patient did not want to take the glucose pills again and asked to wait another 10 mins before checking again. As pt. asymptomatic, rechecked again per request and after another 10 mins, blood sugar had come up to 83. Patient stated that she knew why her blood sugar was low stating that she did not drink the ensure. When asked if she did not like the flavor, pt. stated that she did not like that brand period, and would not drink it. Will pass on to day shift, and if pt. still staying another day or two, they can let the day MD know.
[2022-04-05] MEDS: ondansetron/PF 4mg/2ml inj IV PRN (00:50)
[2022-04-05 06:00] VITALS: BP 113/66
[2022-04-05 06:14] LABS: MAGNESIUM 1.5 MG/DL (1.5-2.4)
--- NOTE | 2022-04-05 06:15 | NUR ---
Patient in room ORTHO 4012. I have received report from PAT Perez and had the opportunity to ask questions and assume patient care.
--- NOTE | 2022-04-05 06:26 | NUR ---
Problems reprioritized. Patient report given, questions answered & plan of care reviewed with Roxana STEWART.
--- NOTE | 2022-04-05 06:57 | NUR ---
Diabetes consult: Noted pt A1c 6.3 well controlled and appropriate per ADA guidelines. DM ed not indicated at this time. Addendum: 04/05/22 at [address] Amended: Links added.
[2022-04-05] MEDS: lactose-reduced food (Ensure Enlive) - 237ml bottle PO SCH ×3 (08:00→18:00)
[2022-04-05] MEDS: K and/or MAG REPLACEMENT MC SCH ×4 (08:09→20:00)
[2022-04-05] MEDS: aspirin 81mg, enteric-coated 1 TAB TABLET.DR PO SCH (08:28)
[2022-04-05] MEDS: pantoprazole 40mg Tablet.DR PO SCH (08:28)
[2022-04-05] MEDS: docusate sod 100mg capsule PO SCH ×2 (08:28→21:02)
[2022-04-05] MEDS: predniSONE 5mg tablet PO SCH (08:28)
[2022-04-05] MEDS: loratadine 10mg tablet PO SCH (08:28)
[2022-04-05] MEDS: tacrolimus anhydrous 1mg capsule PO SCH ×2 (08:29→21:01)
[2022-04-05] MEDS: mycophenolate mofetil 250mg capsule PO SCH ×2 (08:29→21:02)
[2022-04-05] MEDS: losartan 25mg tablet PO SCH (08:29)
[2022-04-05] MEDS: furosemide 40mg tablet PO SCH (08:29)
[2022-04-05] MEDS: heparin, porcine 5000 units/ml vial SQ SCH ×2 (08:32→21:02)
[2022-04-05] MEDS: mineral oil/petrolatum, white cream 113gm jar TP SCH ×2 (08:33→21:15)
[2022-04-05] MEDS: nystatin 15 GM powder TP SCH ×2 (08:33→21:14)
[2022-04-05] MEDS: cefazolin/dext.iso 2gm/100ml 100 ML IV SCH ×2 (08:34→16:42)
[2022-04-05] MEDS: insulin Lispro (HumaLOG) vial - multi-dose SQ SCH ×2 (09:25→13:55)
[2022-04-05 10:00] VITALS: BP 109/55
[2022-04-05 18:00] VITALS: BP 126/62
--- NOTE | 2022-04-05 18:10 | NUR ---
Patient in room ORTHO 4012. I have received report from PAT Schmidt and had the opportunity to ask questions and assume patient care.
[2022-04-05] MEDS: DEXTROSE 15 GM of carb/4 tabs (each vial/BOTTLE has 4 tablets) PO PRN (18:12)
--- NOTE | 2022-04-05 18:51 | NUR ---
Problems reprioritized. Patient report given, questions answered & plan of care reviewed with PAT Sahni.
[2022-04-05] MEDS: insulin glargine (Lantus) pen - multi-dose SQ SCH (21:08)
[2022-04-05 22:00] VITALS: BP 144/68
[2022-04-06] MEDS: cefazolin/dext.iso 2gm/100ml 100 ML IV SCH ×2 (00:01→09:08)
[2022-04-06 06:00] VITALS: BP 167/73
--- NOTE | 2022-04-06 06:09 | NUR ---
Problems reprioritized. Patient report given, questions answered & plan of care reviewed with PAT Schmidt.
[2022-04-06 06:30] LABS: BASOPHILS # (AUTO) 0.1 X10'3 (0-0.2); BASOPHILS % (AUTO) 0.7 % (0-1); EOSINOPHILS # (AUTO) 0.3 X10'3 (0-0.9); EOSINOPHILS % (AUTO) 2.8 % (0-6); HEMATOCRIT 35.7 % (35.0-45.0); HEMOGLOBIN 11.8 g/dl (12.0-16.0); LYMPHOCYTES # (AUTO) 2.3 X10'3 (1.1-4.8); LYMPHOCYTES % (AUTO) 24.1 % (21-51); MEAN CORPUSCULAR HEMOGLOBIN 29.6 PG (27.0-31.0); MEAN CORPUSCULAR HGB CONC 33.2 g/dL (33.0-36.5); MEAN CORPUSCULAR VOLUME 89.4 FL (78-98); MEAN PLATELET VOLUME 8.5 FL (7.4-10.4); MONOCYTES # (AUTO) 0.7 X10'3 (0-0.9); MONOCYTES % (AUTO) 7.4 % (2-12); NEUTROPHILS # (AUTO) 6.1 X10'3 (1.8-7.7); PLATELET COUNT 295 X10'3 (140-440); RED BLOOD COUNT 3.99 X10'6 (4.20-5.60); RED CELL DISTRIBUTION WIDTH 14.2 % (11.5-14.5); WHITE BLOOD COUNT 9.4 X10'3 (4.5-11.0)
--- NOTE | 2022-04-06 06:40 | NUR ---
Patient in room ORTHO 4012. I have received report from PAT Sahni and had the opportunity to ask questions and assume patient care.
[2022-04-06 06:42] LABS: ALANINE AMINOTRANSFERASE 10 U/L (12-78); ALBUMIN 2.5 G/DL (3.4-5.0); ALBUMIN/GLOBULIN RATIO 0.7 (1.1-1.5); ALKALINE PHOSPHATASE 87 IU/L (46-116); ANION GAP 7 (8-16); ASPARTATE AMINO TRANSFERASE 19 U/L (10-37); BILIRUBIN,TOTAL 0.2 MG/DL (0.1-1.0); BLOOD UREA NITROGEN 29 MG/DL (7-18); BUN/CREATININE RATIO 20.6 (6.6-38.0); CALCIUM 8.8 MG/DL (8.5-10.1); CHLORIDE 99 MMOL/L (99-107); CREATININE 1.41 MG/DL (0.40-0.90); GLUCOSE 313 MG/DL (70-104); MAGNESIUM 1.6 MG/DL (1.5-2.4); PHOSPHORUS 2.9 MG/DL (2.3-4.5); POTASSIUM 4.3 MMOL/L (3.5-5.1); SODIUM 128 MMOL/L (135-145); TOTAL CARBON DIOXIDE 22.2 MMOL/L (24-32); TOTAL PROTEIN 6.3 G/DL (6.4-8.2); eGFR 39 ML/MIN
[2022-04-06] MEDS: mineral oil/petrolatum, white cream 113gm jar TP SCH (08:00)
[2022-04-06] MEDS: nystatin 15 GM powder TP SCH (08:00)
[2022-04-06] MEDS: K and/or MAG REPLACEMENT MC SCH ×2 (08:00)
[2022-04-06] MEDS: pantoprazole 40mg Tablet.DR PO SCH (08:00)
[2022-04-06] MEDS: lactose-reduced food (Ensure Enlive) - 237ml bottle PO SCH ×2 (08:00→13:00)
[2022-04-06] MEDS: docusate sod 100mg capsule PO SCH (08:51)
[2022-04-06] MEDS: loratadine 10mg tablet PO SCH (08:52)
[2022-04-06] MEDS: furosemide 40mg tablet PO SCH (08:52)
[2022-04-06] MEDS: aspirin 81mg, enteric-coated 1 TAB TABLET.DR PO SCH (08:52)
[2022-04-06] MEDS: losartan 25mg tablet PO SCH (08:52)
[2022-04-06] MEDS: predniSONE 5mg tablet PO SCH (08:52)
[2022-04-06] MEDS: heparin, porcine 5000 units/ml vial SQ SCH (08:53)
[2022-04-06] MEDS: insulin Lispro (HumaLOG) vial - multi-dose SQ SCH ×2 (09:06→14:14)
[2022-04-06] MEDS: tacrolimus anhydrous 1mg capsule PO SCH (09:07)
[2022-04-06] MEDS: mycophenolate mofetil 250mg capsule PO SCH (09:10)
[2022-04-06 10:00] VITALS: BP 174/40
== END 2022-04-06 16:52 | DRG 872 ==
LOC: ER 03:22 → ED HOLD 11:54 → ORTHO 4S 03-31 18:00
PROVIDERS: ADMIT Family Medicine; ATTEND Family Medicine
DX: A41.51 Sepsis due to Escherichia coli [E. coli] (principal); D84.821 Immunodeficiency due to drugs; N12 Tubulo-interstitial nephritis, not specified as acute or chronic; Z68.41 Body mass index [BMI] 40.0-44.9, adult; Z94.0 Kidney transplant status; E11.39 Type 2 diabetes mellitus with other diabetic ophthalmic complication; Z20.822 Contact with and (suspected) exposure to COVID-19; E66.01 Morbid (severe) obesity due to excess calories; G47.33 Obstructive sleep apnea (adult) (pediatric); E11.42 Type 2 diabetes mellitus with diabetic polyneuropathy; N28.89 Other specified disorders of kidney and ureter; E11.22 Type 2 diabetes mellitus with diabetic chronic kidney disease; I12.9 Hypertensive chronic kidney disease with stage 1 through stage 4 chronic kidney disease, or unspecified chronic kidney disease; N18.9 Chronic kidney disease, unspecified; E11.610 Type 2 diabetes mellitus with diabetic neuropathic arthropathy; G47.30 Sleep apnea, unspecified; E11.319 Type 2 diabetes mellitus with unspecified diabetic retinopathy without macular edema; H54.3 Unqualified visual loss, both eyes; Z79.899 Other long term (current) drug therapy; Z87.440 Personal history of urinary (tract) infections; Z88.5 Allergy status to narcotic agent; Z88.8 Allergy status to other drugs, medicaments and biological substances; Z91.040 Latex allergy status; Z79.82 Long term (current) use of aspirin
CPT/HCPCS: 36415; 70450; 71045; 74176; 76770; 76776; 80053; 81001; 81003; 81025; 82947; 82948; 83036; 83605; 83690; 83735; 84100; 84132; 84145; 84484; 85025; 85610; 87040; 87077; 87081; 87088; 87186; 96361; 96374; 96375; 97116; 97162; 97530; 99285; C9113; G0378; J0690; J0692; J0696; J1644; J1815; J2405; J2543; J3010; J3490; J7030; J7507; J7512; J7517; J8597

== ENCOUNTER 2022-08-17 11:28 | Emergency (ER) | payer MEDICARE, MEDICAID ==
[~2022-08-17] VITALS: Ht 154.9 cm; Wt 92.7 kg
[~2022-08-17 11:28] MED LIST changes: -MECL-226 PO; +PRE5T PO; -PRED5TAB PO
[2022-08-17 11:33] VITALS: BP 135/61
[2022-08-17 13:25] LABS: BASOPHILS # (AUTO) 0.1 X10'3 (0-0.2); BASOPHILS % (AUTO) 0.6 % (0-1); EOSINOPHILS # (AUTO) 0.2 X10'3 (0-0.9); EOSINOPHILS % (AUTO) 1.7 % (0-6); HEMATOCRIT 39.7 % (35.0-45.0); HEMOGLOBIN 13.3 g/dl (12.0-16.0); LYMPHOCYTES % (AUTO) 18.8 % (21-51); MEAN CORPUSCULAR HEMOGLOBIN 29.7 PG (27.0-31.0); MEAN CORPUSCULAR HGB CONC 33.5 g/dL (33.0-36.5); MEAN CORPUSCULAR VOLUME 88.6 FL (78-98); MEAN PLATELET VOLUME 8.3 FL (7.4-10.4); MONOCYTES # (AUTO) 0.7 X10'3 (0-0.9); MONOCYTES % (AUTO) 7.1 % (2-12); NEUTROPHILS # (AUTO) 7.5 X10'3 (1.8-7.7); NEUTROPHILS % (AUTO) 71.8 % (42-75); PLATELET COUNT 401 X10'3 (140-440); RED BLOOD COUNT 4.48 X10'6 (4.20-5.60); RED CELL DISTRIBUTION WIDTH 14.2 % (11.5-14.5); WHITE BLOOD COUNT 10.4 X10'3 (4.5-11.0)
[2022-08-17 13:48] LABS: ALANINE AMINOTRANSFERASE 14 U/L (12-78); ALBUMIN 3.4 G/DL (3.4-5.0); ALBUMIN/GLOBULIN RATIO 0.8 (1.1-1.5); ALKALINE PHOSPHATASE 124 IU/L (46-116); ANION GAP 12 (8-16); ASPARTATE AMINO TRANSFERASE 15 U/L (10-37); BILIRUBIN,TOTAL 0.2 MG/DL (0.1-1.0); BLOOD UREA NITROGEN 38 MG/DL (7-18); CALCIUM 9.3 MG/DL (8.5-10.1); CHLORIDE 102 MMOL/L (99-107); CREATININE 1.15 MG/DL (0.40-0.90); GLUCOSE 124 MG/DL (70-104); LIPASE 109 U/L (73-393); POTASSIUM 3.7 MMOL/L (3.5-5.1); SODIUM 136 MMOL/L (135-145); TOTAL PROTEIN 7.8 G/DL (6.4-8.2); eGFR 49 ML/MIN
[2022-08-17] MEDS ORDERED: HYDROcodone/acetaminophen 5mg/325mg tablet PO ONE (14:30)
[2022-08-17] MEDS ORDERED: diphenhydrAMINE 25mg capsule PO ONE (14:30)
[2022-08-17] MEDS ORDERED: amox tr/potassium clavulanate 875/125mg TAB PO ONE (14:35)
[2022-08-17] MEDS ORDERED: AMOX-117 PO ×2 (14:40)
[2022-08-17] MEDS ORDERED: CEFU500T66 PO (15:58)
[2022-08-17] MEDS ORDERED: PRED20TA PO (15:58)
[2022-08-17] MEDS ORDERED: ONDA8TAB13 PO (15:58)
[2022-08-17] MEDS ORDERED: HYDR-3965 PO (15:58)
== END 2022-08-17 16:14 | disposition home or self-care (01) ==
LOC: ER 11:29
DX: H05.10 Unspecified chronic inflammatory disorders of orbit (principal); H57.12 Ocular pain, left eye; H54.40 Blindness, one eye, unspecified eye; E11.319 Type 2 diabetes mellitus with unspecified diabetic retinopathy without macular edema; I10 Essential (primary) hypertension; Z98.890 Other specified postprocedural states; Z88.5 Allergy status to narcotic agent; Z91.040 Latex allergy status; Z88.8 Allergy status to other drugs, medicaments and biological substances; Z79.82 Long term (current) use of aspirin; Z79.2 Long term (current) use of antibiotics; Z79.4 Long term (current) use of insulin; Z79.899 Other long term (current) drug therapy
CPT/HCPCS: 36415; 80053; 83605; 83690; 85025; 85651; 99284; Q0163

== ENCOUNTER 2023-05-15 13:43 | Emergency (ER) | payer MEDICARE, MEDICAID ==
[~2023-05-15] VITALS: Ht 152.4 cm; Wt 75.0 kg
[~2023-05-15 13:43] MED LIST changes: +CEFU500T66 PO; +ONDA8TAB13 PO
[2023-05-15] MEDS ORDERED: dextrose 5%-normal saline 1,000 ML IV SCH (14:10)
[2023-05-15 14:53] LABS: BASOPHILS % (AUTO) 0.3 % (0-1); EOSINOPHILS # (AUTO) 0.2 X10'3 (0-0.9); EOSINOPHILS % (AUTO) 2.6 % (0-6); HEMATOCRIT 38.2 % (35.0-45.0); HEMOGLOBIN 12.7 g/dl (12.0-16.0); LYMPHOCYTES # (AUTO) 1.6 X10'3 (1.1-4.8); LYMPHOCYTES % (AUTO) 18.2 % (21-51); MEAN CORPUSCULAR HEMOGLOBIN 30.8 PG (27.0-31.0); MEAN CORPUSCULAR HGB CONC 33.1 g/dL (33.0-36.5); MEAN CORPUSCULAR VOLUME 93.2 FL (78-98); MONOCYTES # (AUTO) 1.1 X10'3 (0-0.9); MONOCYTES % (AUTO) 12.8 % (2-12); NEUTROPHILS # (AUTO) 5.9 X10'3 (1.8-7.7); NEUTROPHILS % (AUTO) 66.1 % (42-75); PLATELET COUNT 282 X10'3 (140-440); RED CELL DISTRIBUTION WIDTH 13.3 % (11.5-14.5); WHITE BLOOD COUNT 8.9 X10'3 (4.5-11.0)
[2023-05-15 15:01] LABS: AMMONIA < 10 UMOL/L (11-32)
[2023-05-15 15:03] LABS: ALANINE AMINOTRANSFERASE 41 U/L (12-78); ALBUMIN 3.2 G/DL (3.4-5.0); ALBUMIN/GLOBULIN RATIO 0.8 (1.1-1.5); ALKALINE PHOSPHATASE 165 IU/L (46-116); ANION GAP 11 (8-16); ASPARTATE AMINO TRANSFERASE 21 U/L (10-37); BILIRUBIN,TOTAL 0.4 MG/DL (0.1-1.0); BLOOD UREA NITROGEN 48 MG/DL (7-18); BUN/CREATININE RATIO 35.6 (10.0-20.0); CALCIUM 8.8 MG/DL (8.5-10.1); CHLORIDE 103 MMOL/L (99-107); CREATININE 1.35 MG/DL (0.40-0.90); GLUCOSE 124 MG/DL (70-104); POTASSIUM 3.8 MMOL/L (3.5-5.1); SODIUM 137 MMOL/L (135-145); TOTAL CARBON DIOXIDE 22.8 MMOL/L (24-32); eGFR 41 ML/MIN
[2023-05-15 15:05] LABS: LACTIC SEPSIS 1.5 MMOL/L (0.4-2.0)
[2023-05-15 16:14] LABS: CLARITY,URINE SLIGHTLY CLOUDY (Clear); COLOR,URINE YELLOW (Yellow); GLUCOSE, URINE NEGATIVE (Neg); KETONES,URINE NEGATIVE (Neg); LEUKOCYTE ESTERASE ,URINE NEGATIVE (Neg); NITRITES, URINE NEGATIVE (Neg); OCCULT BLOOD,URINE NEGATIVE (Neg); PH,URINE 5.5 (4.8-8.0); PROTEIN,URINE 100 mg/dl (Neg); UROBILINOGEN,URINE 0.2 E.U/dL (0.2-1.0)
[2023-05-15 16:19] LABS: UA COLLECTION TYPE STRAIGHT CATH
[2023-05-15 16:28] LABS: AMORPHOUS URATES 1+; BACTERIA,URINE FEW /HPF (Neg); RBC,URINE NONE SEEN /HPF (0-2); SQUAMOUS EPITHELIAL CELL,UR NONE SEEN /LPF (FEW); WBC,URINE NONE SEEN /HPF (0-4)
[2023-05-15 17:06] VITALS: BP 139/74
== END 2023-05-15 17:21 | disposition home or self-care (01) ==
LOC: ER 13:43
DX: E11.649 Type 2 diabetes mellitus with hypoglycemia without coma (principal); E11.9 Type 2 diabetes mellitus without complications; Z88.8 Allergy status to other drugs, medicaments and biological substances; Z91.040 Latex allergy status; Z88.5 Allergy status to narcotic agent
CPT/HCPCS: 36415; 70450; 71045; 80053; 81001; 82140; 82948; 83605; 85025; 87040; 96365; 96366; 99285; J7042; A4314; C1758

== ENCOUNTER 2024-08-06 17:53 | Inpatient (IN) | payer MEDICARE, MEDICAID ==
[~2024-08-06] VITALS: Ht 157.5 cm; Wt 65.5 kg
[~2024-08-06 17:53] MED LIST changes: +LOSA-415 PO; -LOSA25TA96 PO; -MECL-159 PO; +MECL-302 PO; +ONDA-245 PO; -ONDA8TAB13 PO
[2024-08-06 19:18] LABS: BASOPHILS % (AUTO) 0.4 % (0-1); EOSINOPHILS % (AUTO) 0.4 % (0-6); HEMATOCRIT 36.8 % (35.0-45.0); LYMPHOCYTES # (AUTO) 1.1 X10'3 (1.1-4.8); MEAN CORPUSCULAR HEMOGLOBIN 30.3 PG (27.0-31.0); MEAN CORPUSCULAR HGB CONC 32.5 g/dL (33.0-36.5); MEAN CORPUSCULAR VOLUME 93.2 FL (78-98); MONOCYTES # (AUTO) 0.6 X10'3 (0-0.9); MONOCYTES % (AUTO) 6.4 % (2-12); NEUTROPHILS # (AUTO) 7.5 X10'3 (1.8-7.7); NEUTROPHILS % (AUTO) 80.8 % (42-75); PLATELET COUNT 253 X10'3 (140-440); RED BLOOD COUNT 3.95 X10'6 (4.20-5.60); RED CELL DISTRIBUTION WIDTH 14.2 % (11.5-14.5); WHITE BLOOD COUNT 9.2 X10'3 (4.5-11.0)
[2024-08-06 19:31] LABS: ALANINE AMINOTRANSFERASE 18 U/L (12-78); ALBUMIN 3.2 G/DL (3.4-5.0); ALBUMIN/GLOBULIN RATIO 0.8 (1.1-1.5); ALKALINE PHOSPHATASE 147 IU/L (46-116); ANION GAP 9 (8-16); ASPARTATE AMINO TRANSFERASE 19 U/L (10-37); BILIRUBIN,TOTAL 0.3 MG/DL (0.1-1.0); BLOOD UREA NITROGEN 27 MG/DL (7-18); BUN/CREATININE RATIO 19.3 (10.0-20.0); CALCIUM 8.6 MG/DL (8.5-10.1); CHLORIDE 104 MMOL/L (99-107); GLUCOSE 293 MG/DL (70-104); POTASSIUM 4.5 MMOL/L (3.5-5.1); SODIUM 138 MMOL/L (135-145); TOTAL CARBON DIOXIDE 25.3 MMOL/L (24-32); eCRCL 35 ML/MIN; eGFR 39 ML/MIN
[2024-08-06 19:39] LABS: PRO BRAIN NATRIURETIC PEPTIDE 795 PG/ML (0-125)
[2024-08-07] MEDS: normal saline 1000ml 1,000 ML IV ONE (01:23)
[2024-08-07] MEDS: insulin glargine (Lantus) pen - multi-dose SQ SCH (01:40)
[2024-08-07] MEDS ORDERED: glucagon, human recombinant 1mg kit SUBCUT PRN (01:40)
[2024-08-07] MEDS ORDERED: magnesium Cl slow-release 64mg tablet PO PRN (01:40)
[2024-08-07] MEDS ORDERED: potassium Cl 20 mEq SR tablet PO PRN ×2 (01:40)
[2024-08-07] MEDS ORDERED: potassium Cl 40MEQ/1/2NS 520ml 520 ML IV PRN (01:40)
[2024-08-07] MEDS ORDERED: mag hydrox/Alum hydrox/simeth 30ml oral suspension PO PRN (01:40)
[2024-08-07] MEDS ORDERED: magnesium sulf-water 4G/100mL 100 ML IV PRN (01:40)
[2024-08-07] MEDS ORDERED: DEXTROSE 15 GM of carb/4 tabs (each vial/BOTTLE has 4 tablets) PO PRN ×2 (01:40)
[2024-08-07] MEDS ORDERED: magnesium sulf-water 2g/50mL 50 ML IV PRN (01:40)
[2024-08-07] MEDS ORDERED: dextrose 50%-water 50ml dispensing syringe IV PRN ×2 (01:40)
[2024-08-07] MEDS ORDERED: clopidogrel 75mg tablet PO ONE (02:05)
[2024-08-07 02:07] LABS: HEMOGLOBIN A1C 6.7 % (4.5-6.2)
[2024-08-07] MEDS: atorvastatin 20mg tablet PO SCH (03:27)
[2024-08-07] MEDS: aspirin 325mg tablet PO ONE (03:27)
[2024-08-07] MEDS: clopidogrel 300mg tablet PO ONE (03:27)
[2024-08-07] MEDS: normal saline 1000ml 1,000 ML IV SCH (03:48)
[2024-08-07 03:51] LABS: MAGNESIUM 1.8 MG/DL (1.5-2.4); POTASSIUM 4.2 MMOL/L (3.5-5.1)
[2024-08-07] MEDS ORDERED: LANTUS SQ (03:56)
[2024-08-07 05:36] LABS: BILIRUBIN,URINE NEGATIVE (Neg); CLARITY,URINE CLEAR (Clear); GLUCOSE, URINE 250 mg/dl (Neg); KETONES,URINE NEGATIVE (Neg); LEUKOCYTE ESTERASE ,URINE NEGATIVE (Neg); NITRITES, URINE NEGATIVE (Neg); OCCULT BLOOD,URINE NEGATIVE (Neg); PROTEIN,URINE 30 mg/dl (Neg); UROBILINOGEN,URINE 0.2 E.U/dL (0.2-1.0)
[2024-08-07 05:43] LABS: COLOR,URINE YELLOW (Yellow); UA COLLECTION TYPE CLN CATCH MIDSTREAM
[2024-08-07 05:45] LABS: BACTERIA,URINE NONE SEEN /HPF (Neg); MUCUS STRANDS NONE SEEN /LPF (Neg); RBC,URINE NONE SEEN /HPF (0-2); SQUAMOUS EPITHELIAL CELL,UR FEW /LPF (FEW); WBC,URINE 0-4 /HPF (0-4)
[2024-08-07] MEDS: INSULIN LISPRO 100 UNIT/ML INSULN.PEN MULTI-DOSE SQ SCH (07:47)
[2024-08-07] MEDS: K and/or MAG REPLACEMENT MC SCH (08:00)
[2024-08-07] MEDS: docusate sod 100mg capsule PO SCH (08:00)
[2024-08-07] MEDS: furosemide 40mg tablet PO SCH (08:37)
[2024-08-07] MEDS: mycophenolate mofetil 250mg capsule PO SCH (08:37)
[2024-08-07] MEDS: aspirin 81mg, enteric-coated 1 TAB TABLET.DR PO SCH (08:37)
[2024-08-07] MEDS: loratadine 10mg tablet PO SCH (08:37)
[2024-08-07] MEDS: pantoprazole 40mg Tablet.DR PO SCH (08:37)
[2024-08-07] MEDS: heparin, porcine 5000 units/ml vial SQ SCH (08:37)
[2024-08-07] MEDS: predniSONE 5mg tablet PO SCH (08:37)
[2024-08-07] MEDS: tacrolimus anhydrous 1mg capsule PO SCH ×2 (08:38→23:01)
[2024-08-07] MEDS: aspirin 81mg tab.chew PO SCH (08:39)
[2024-08-07] MEDS: FLU VACC TS2024-25(6MOS UP)/PF 45 MCG/0.5 ML SYRINGE IMVAC ONE (10:06)
[2024-08-07] MEDS ORDERED: morphine 2 MG/ML inj. syringe IV PRN ×2 (10:50)
[2024-08-07] MEDS: acetaminophen 325mg tablet PO PRN (11:36)
[2024-08-07 14:00] VITALS: BP 169/56; PULSE 82; RESP 16; TEMP 97.6; O2SAT 100
[2024-08-07 18:00] VITALS: BP 152/65; PULSE 79; RESP 16; TEMP 97.5; O2SAT 99
[2024-08-07 22:00] VITALS: BP 140/62; PULSE 81; RESP 16; TEMP 98; O2SAT 100
[2024-08-07] MEDS: clopidogrel 75mg tablet PO SCH (23:02)
[2024-08-08] VITALS (7 sets, daily range): BP systolic 147–182; BP diastolic 43–52; PULSE 78–93; RESP 16–18; TEMP 97.6–98.8; O2SAT 96–100
[2024-08-08 06:10] LABS: BASOPHILS % (AUTO) 0.5 % (0-1); EOSINOPHILS # (AUTO) 0.2 X10'3 (0-0.9); EOSINOPHILS % (AUTO) 2.4 % (0-6); HEMATOCRIT 34.5 % (35.0-45.0); HEMOGLOBIN 11.3 g/dl (12.0-16.0); LYMPHOCYTES # (AUTO) 2.1 X10'3 (1.1-4.8); LYMPHOCYTES % (AUTO) 30.8 % (21-51); MEAN CORPUSCULAR HEMOGLOBIN 30.3 PG (27.0-31.0); MEAN CORPUSCULAR HGB CONC 32.8 g/dL (33.0-36.5); MEAN CORPUSCULAR VOLUME 92.3 FL (78-98); MEAN PLATELET VOLUME 9.1 FL (7.4-10.4); MONOCYTES # (AUTO) 0.7 X10'3 (0-0.9); MONOCYTES % (AUTO) 10.1 % (2-12); NEUTROPHILS # (AUTO) 3.9 X10'3 (1.8-7.7); NEUTROPHILS % (AUTO) 56.2 % (42-75); PLATELET COUNT 243 X10'3 (140-440); RED BLOOD COUNT 3.74 X10'6 (4.20-5.60); RED CELL DISTRIBUTION WIDTH 13.8 % (11.5-14.5); WHITE BLOOD COUNT 6.9 X10'3 (4.5-11.0)
[2024-08-08 06:16] LABS: ALANINE AMINOTRANSFERASE 11 U/L (12-78); ALBUMIN 2.6 G/DL (3.4-5.0); ALBUMIN/GLOBULIN RATIO 0.8 (1.1-1.5); ALKALINE PHOSPHATASE 112 IU/L (46-116); ANION GAP 7 (8-16); ASPARTATE AMINO TRANSFERASE 15 U/L (10-37); BILIRUBIN,TOTAL 0.4 MG/DL (0.1-1.0); BLOOD UREA NITROGEN 23 MG/DL (7-18); BUN/CREATININE RATIO 20.4 (10.0-20.0); CALCIUM 8.4 MG/DL (8.5-10.1); CHLORIDE 110 MMOL/L (99-107); CHOL/HDL RATIO 3.1 (0.00-4.99); CHOLESTEROL 169 MG/DL (0-200); CREATININE 1.13 MG/DL (0.40-0.90); GLUCOSE 88 MG/DL (70-104); HDL CHOLESTEROL 54 MG/DL (35-60); LDL CHOLESTEROL 101 MG/DL (50-100); MAGNESIUM 1.5 MG/DL (1.5-2.4); POTASSIUM 3.8 MMOL/L (3.5-5.1); SODIUM 141 MMOL/L (135-145); TOTAL CARBON DIOXIDE 24.5 MMOL/L (24-32); TRIGLYCERIDES 75 MG/DL (20-135); eCRCL 44 ML/MIN; eGFR 50 ML/MIN
[2024-08-08] MEDS ORDERED: hydrALAZINE 20mg/ml inj. IV PRN (17:05)
[2024-08-08] MEDS: INSULIN LISPRO 100 UNIT/ML INSULN.PEN MULTI-DOSE SQ SCH (21:17)
[2024-08-09] MEDS: hydrALAZINE 20mg/ml inj. IV PRN (05:59)
[2024-08-09 06:00] VITALS: BP 186/49; PULSE 84; RESP 16; TEMP 98.6; O2SAT 99
[2024-08-09 06:53] LABS: BASOPHILS % (AUTO) 0.3 % (0-1); EOSINOPHILS # (AUTO) 0.2 X10'3 (0-0.9); EOSINOPHILS % (AUTO) 2.4 % (0-6); HEMATOCRIT 33.7 % (35.0-45.0); LYMPHOCYTES # (AUTO) 1.2 X10'3 (1.1-4.8); LYMPHOCYTES % (AUTO) 15.2 % (21-51); MEAN CORPUSCULAR HEMOGLOBIN 30.4 PG (27.0-31.0); MEAN CORPUSCULAR HGB CONC 32.7 g/dL (33.0-36.5); MEAN PLATELET VOLUME 9.2 FL (7.4-10.4); MONOCYTES # (AUTO) 0.6 X10'3 (0-0.9); MONOCYTES % (AUTO) 8.1 % (2-12); NEUTROPHILS # (AUTO) 5.7 X10'3 (1.8-7.7); PLATELET COUNT 222 X10'3 (140-440); RED BLOOD COUNT 3.62 X10'6 (4.20-5.60); RED CELL DISTRIBUTION WIDTH 13.7 % (11.5-14.5); WHITE BLOOD COUNT 7.6 X10'3 (4.5-11.0)
[2024-08-09 07:12] LABS: ALANINE AMINOTRANSFERASE 21 U/L (12-78); ALBUMIN 2.5 G/DL (3.4-5.0); ALBUMIN/GLOBULIN RATIO 0.8 (1.1-1.5); ALKALINE PHOSPHATASE 121 IU/L (46-116); ANION GAP 8 (8-16); ASPARTATE AMINO TRANSFERASE 21 U/L (10-37); BILIRUBIN,TOTAL 0.3 MG/DL (0.1-1.0); BLOOD UREA NITROGEN 27 MG/DL (7-18); CALCIUM 8.1 MG/DL (8.5-10.1); CHLORIDE 108 MMOL/L (99-107); CHOL/HDL RATIO 2.9 (0.00-4.99); CHOLESTEROL 157 MG/DL (0-200); CREATININE 1.23 MG/DL (0.40-0.90); GLUCOSE 210 MG/DL (70-104); HDL CHOLESTEROL 54 MG/DL (35-60); LDL CHOLESTEROL 90 MG/DL (50-100); MAGNESIUM 1.6 MG/DL (1.5-2.4); POTASSIUM 4.1 MMOL/L (3.5-5.1); SODIUM 139 MMOL/L (135-145); TOTAL CARBON DIOXIDE 23.1 MMOL/L (24-32); TOTAL PROTEIN 5.8 G/DL (6.4-8.2); TRIGLYCERIDES 70 MG/DL (20-135); eCRCL 40 ML/MIN; eGFR 45 ML/MIN
[2024-08-09] MEDS: furosemide 40mg tablet PO SCH (08:49)
[2024-08-09 09:00] VITALS: RESP 16; O2SAT 95
[2024-08-09 10:00] VITALS: BP 153/47; PULSE 95; RESP 16; TEMP 98.4; O2SAT 99
[2024-08-09] MEDS ORDERED: glucagon, human recombinant 1mg kit SUBCUT PRN (11:00)
[2024-08-09] MEDS ORDERED: dextrose 50%-water 50ml dispensing syringe IV PRN ×2 (11:00)
[2024-08-09] MEDS ORDERED: DEXTROSE 15 GM of carb/4 tabs (each vial/BOTTLE has 4 tablets) PO PRN ×2 (11:00)
[2024-08-09] MEDS: acetaminophen 325mg tablet PO PRN (11:16)
[2024-08-09] MEDS ORDERED: INSULIN LISPRO 100 UNIT/ML INSULN.PEN MULTI-DOSE SQ SCH (12:00)
[2024-08-09] MEDS: insulin glargine (Lantus) pen - multi-dose SQ SCH (12:07)
[2024-08-09] MEDS: INSULIN LISPRO 100 UNIT/ML INSULN.PEN MULTI-DOSE SQ SCH (12:10)
[2024-08-09] MEDS: traMADol 50MG tablet PO PRN (17:40)
[2024-08-09 17:54] LABS: ALANINE AMINOTRANSFERASE 53 U/L (12-78); ALBUMIN 2.5 G/DL (3.4-5.0); ALBUMIN/GLOBULIN RATIO 0.7 (1.1-1.5); ALKALINE PHOSPHATASE 155 IU/L (46-116); ANION GAP 4 (8-16); ASPARTATE AMINO TRANSFERASE 62 U/L (10-37); BILIRUBIN,TOTAL 0.4 MG/DL (0.1-1.0); BLOOD UREA NITROGEN 30 MG/DL (7-18); CALCIUM 8.2 MG/DL (8.5-10.1); CHLORIDE 103 MMOL/L (99-107); CREATININE 1.43 MG/DL (0.40-0.90); POTASSIUM 5.1 MMOL/L (3.5-5.1); SODIUM 132 MMOL/L (135-145); TOTAL CARBON DIOXIDE 25.2 MMOL/L (24-32); eCRCL 35 ML/MIN; eGFR 38 ML/MIN
[2024-08-09 17:58] LABS: GLUCOSE 446 MG/DL (70-104)
[2024-08-09 18:00] VITALS: BP 142/90; PULSE 82; RESP 16; TEMP 97.6; O2SAT 100
[2024-08-09 20:30] VITALS: RESP 16; O2SAT 100
[2024-08-09] MEDS ORDERED: insulin glargine (Lantus) pen - multi-dose SQ SCH (21:00)
[2024-08-09 22:00] VITALS: BP 142/43; PULSE 78; RESP 16; TEMP 98.7
[2024-08-10 06:00] VITALS: BP 144/51; PULSE 78; RESP 16; TEMP 98.4; O2SAT 96
[2024-08-10 06:36] LABS: BASOPHILS % (AUTO) 0.5 % (0-1); EOSINOPHILS # (AUTO) 0.3 X10'3 (0-0.9); EOSINOPHILS % (AUTO) 4.2 % (0-6); HEMOGLOBIN 10.9 g/dl (12.0-16.0); LYMPHOCYTES # (AUTO) 1.5 X10'3 (1.1-4.8); LYMPHOCYTES % (AUTO) 20.9 % (21-51); MEAN CORPUSCULAR HEMOGLOBIN 30.5 PG (27.0-31.0); MEAN CORPUSCULAR VOLUME 92.3 FL (78-98); MONOCYTES # (AUTO) 0.8 X10'3 (0-0.9); MONOCYTES % (AUTO) 11.3 % (2-12); NEUTROPHILS # (AUTO) 4.7 X10'3 (1.8-7.7); NEUTROPHILS % (AUTO) 63.1 % (42-75); PLATELET COUNT 233 X10'3 (140-440); RED BLOOD COUNT 3.58 X10'6 (4.20-5.60); RED CELL DISTRIBUTION WIDTH 13.8 % (11.5-14.5); WHITE BLOOD COUNT 7.4 X10'3 (4.5-11.0)
[2024-08-10 06:51] LABS: ALANINE AMINOTRANSFERASE 47 U/L (12-78); ALBUMIN 2.5 G/DL (3.4-5.0); ALBUMIN/GLOBULIN RATIO 0.7 (1.1-1.5); ALKALINE PHOSPHATASE 135 IU/L (46-116); ANION GAP 6 (8-16); ASPARTATE AMINO TRANSFERASE 44 U/L (10-37); BILIRUBIN,TOTAL 0.4 MG/DL (0.1-1.0); BLOOD UREA NITROGEN 32 MG/DL (7-18); BUN/CREATININE RATIO 25.2 (10.0-20.0); CALCIUM 8.2 MG/DL (8.5-10.1); CHLORIDE 104 MMOL/L (99-107); CREATININE 1.27 MG/DL (0.40-0.90); GLUCOSE 135 MG/DL (70-104); MAGNESIUM 1.6 MG/DL (1.5-2.4); POTASSIUM 4.5 MMOL/L (3.5-5.1); SODIUM 135 MMOL/L (135-145); TOTAL PROTEIN 5.9 G/DL (6.4-8.2); eCRCL 39 ML/MIN; eGFR 44 ML/MIN
[2024-08-10] MEDS ORDERED: insulin glargine (Lantus) pen - multi-dose SQ SCH (07:30)
[2024-08-10 10:00] VITALS: BP 108/40; PULSE 97; RESP 20; TEMP 97.9; O2SAT 100
[2024-08-10 10:46] VITALS: RESP 16; O2SAT 96
[2024-08-10 10:47] VITALS: RESP 16; O2SAT 96
[2024-08-10] MEDS: lactose-reduced food (Ensure Enlive) - 237ml bottle PO SCH (13:40)
[2024-08-10 18:00] VITALS: BP 162/52; PULSE 85; RESP 16; TEMP 97.5; O2SAT 100
[2024-08-10 22:00] VITALS: BP 185/67; PULSE 88; RESP 16; TEMP 98.7; O2SAT 98
[2024-08-11 02:00] VITALS: BP 182/68; PULSE 87; RESP 20; TEMP 98; O2SAT 97
[2024-08-11 06:48] VITALS: BP 130/37; PULSE 83; RESP 16; TEMP 97.6; O2SAT 96
[2024-08-11 08:31] LABS: BASOPHILS % (AUTO) 0.3 % (0-1); EOSINOPHILS # (AUTO) 0.4 X10'3 (0-0.9); EOSINOPHILS % (AUTO) 4.4 % (0-6); HEMATOCRIT 32.9 % (35.0-45.0); HEMOGLOBIN 10.9 g/dl (12.0-16.0); LYMPHOCYTES # (AUTO) 1.8 X10'3 (1.1-4.8); MEAN CORPUSCULAR HEMOGLOBIN 30.4 PG (27.0-31.0); MEAN PLATELET VOLUME 9.3 FL (7.4-10.4); MONOCYTES # (AUTO) 0.7 X10'3 (0-0.9); MONOCYTES % (AUTO) 8.8 % (2-12); NEUTROPHILS # (AUTO) 5.3 X10'3 (1.8-7.7); NEUTROPHILS % (AUTO) 64.5 % (42-75); PLATELET COUNT 229 X10'3 (140-440); RED BLOOD COUNT 3.58 X10'6 (4.20-5.60); RED CELL DISTRIBUTION WIDTH 13.8 % (11.5-14.5); WHITE BLOOD COUNT 8.2 X10'3 (4.5-11.0)
[2024-08-11 09:10] LABS: ALANINE AMINOTRANSFERASE 53 U/L (12-78); ALBUMIN 2.6 G/DL (3.4-5.0); ALKALINE PHOSPHATASE 159 IU/L (46-116); ANION GAP 7 (8-16); ASPARTATE AMINO TRANSFERASE 47 U/L (10-37); BILIRUBIN,TOTAL 0.4 MG/DL (0.1-1.0); BLOOD UREA NITROGEN 42 MG/DL (7-18); BUN/CREATININE RATIO 32.1 (10.0-20.0); CALCIUM 8.5 MG/DL (8.5-10.1); CHLORIDE 102 MMOL/L (99-107); CREATININE 1.31 MG/DL (0.40-0.90); GLUCOSE 217 MG/DL (70-104); MAGNESIUM 1.8 MG/DL (1.5-2.4); POTASSIUM 4.8 MMOL/L (3.5-5.1); SODIUM 134 MMOL/L (135-145); TOTAL CARBON DIOXIDE 25.5 MMOL/L (24-32); eCRCL 38 ML/MIN; eGFR 42 ML/MIN
[2024-08-11 09:22] LABS: ALBUMIN/GLOBULIN RATIO 0.7 (1.1-1.5); TOTAL PROTEIN 6.1 G/DL (6.4-8.2)
[2024-08-11 09:27] VITALS: RESP 14; O2SAT 98
[2024-08-11 10:00] VITALS: BP 121/26; PULSE 87; RESP 16; TEMP 97.7; O2SAT 98
[2024-08-11] MEDS: insulin regular, human 10 units/0.1 ml syringe SQ ONE (13:03)
[2024-08-11 18:00] VITALS: BP 126/46; PULSE 85; RESP 18; TEMP 97.4; O2SAT 96
[2024-08-11 22:00] VITALS: BP 141/50; PULSE 93; RESP 15; TEMP 97.9; O2SAT 98
[2024-08-11] MEDS: magnesium hydroxide 30ml (MOM) UD suspension PO PRN (22:16)
[2024-08-11] MEDS: INSULIN LISPRO 100 UNIT/ML INSULN.PEN MULTI-DOSE SQ SCH (22:45)
[2024-08-12 06:30] LABS: BASOPHILS % (AUTO) 0.4 % (0-1); EOSINOPHILS # (AUTO) 0.3 X10'3 (0-0.9); EOSINOPHILS % (AUTO) 3.2 % (0-6); HEMATOCRIT 32.8 % (35.0-45.0); HEMOGLOBIN 10.8 g/dl (12.0-16.0); LYMPHOCYTES # (AUTO) 1.7 X10'3 (1.1-4.8); MEAN CORPUSCULAR VOLUME 93.9 FL (78-98); MEAN PLATELET VOLUME 9.7 FL (7.4-10.4); MONOCYTES # (AUTO) 0.7 X10'3 (0-0.9); MONOCYTES % (AUTO) 8.3 % (2-12); NEUTROPHILS # (AUTO) 5.6 X10'3 (1.8-7.7); NEUTROPHILS % (AUTO) 67.1 % (42-75); PLATELET COUNT 213 X10'3 (140-440); RED BLOOD COUNT 3.49 X10'6 (4.20-5.60); RED CELL DISTRIBUTION WIDTH 13.7 % (11.5-14.5); WHITE BLOOD COUNT 8.3 X10'3 (4.5-11.0)
[2024-08-12 06:59] VITALS: BP 177/44; PULSE 89; RESP 16; TEMP 96.4; O2SAT 96
[2024-08-12] MEDS ORDERED: INSULIN LISPRO 100 UNIT/ML INSULN.PEN MULTI-DOSE SQ SCH (07:55)
[2024-08-12] MEDS: amLODIPine 5mg tablet PO SCH ×2 (07:56→08:15)
[2024-08-12] MEDS ORDERED: furosemide 40mg tablet PO SCH (08:00)
[2024-08-12] MEDS: insulin glargine (Lantus) pen - multi-dose SQ SCH (08:10)
[2024-08-12] MEDS: furosemide 20MG tablet PO SCH (08:14)
[2024-08-12] MEDS: INSULIN LISPRO 100 UNIT/ML INSULN.PEN MULTI-DOSE SQ ONE ×2 (08:16→15:58)
[2024-08-12 08:57] LABS: ALANINE AMINOTRANSFERASE 53 U/L (12-78); ALBUMIN 2.5 G/DL (3.4-5.0); ALBUMIN/GLOBULIN RATIO 0.6 (1.1-1.5); ALKALINE PHOSPHATASE 204 IU/L (46-116); ANION GAP 6 (8-16); ASPARTATE AMINO TRANSFERASE 39 U/L (10-37); BILIRUBIN,TOTAL 0.4 MG/DL (0.1-1.0); BLOOD UREA NITROGEN 54 MG/DL (7-18); BUN/CREATININE RATIO 35.8 (10.0-20.0); CALCIUM 8.3 MG/DL (8.5-10.1); CHLORIDE 97 MMOL/L (99-107); CREATININE 1.51 MG/DL (0.40-0.90); POTASSIUM 5.2 MMOL/L (3.5-5.1); SODIUM 130 MMOL/L (135-145); TOTAL CARBON DIOXIDE 26.8 MMOL/L (24-32); TOTAL PROTEIN 6.5 G/DL (6.4-8.2); eCRCL 33 ML/MIN; eGFR 36 ML/MIN
[2024-08-12 09:00] VITALS: RESP 18
[2024-08-12 09:00] LABS: GLUCOSE 557 MG/DL (70-104)
[2024-08-12 10:00] VITALS: BP 170/52; PULSE 91; RESP 18; TEMP 97.7; O2SAT 100
[2024-08-12] MEDS: INSULIN LISPRO 100 UNIT/ML INSULN.PEN MULTI-DOSE SQ SCH (10:24)
[2024-08-12 10:25] VITALS: BP_SYST 170; PULSE 91
[2024-08-12] MEDS: amLODIPine 5mg tablet PO ONE (10:25)
[2024-08-12 11:29] VITALS: RESP 16
[2024-08-12] MEDS: ondansetron/PF 4mg/2ml inj IV PRN (12:08)
[2024-08-12] MEDS: normal saline 1000ml 1,000 ML IV ONE (12:22)
[2024-08-12] MEDS: insulin glargine (Lantus) pen - multi-dose SQ ONE (12:25)
[2024-08-12] MEDS: NUT.TX.GLUC.INTOLER,LAC-FR,SOY (GLUCERNA) 237 ML PO SCH (13:09)
[2024-08-12] MEDS: insulin Lispro (HumaLOG) vial - multi-dose SQ ONE (15:59)
[2024-08-13] MEDS ORDERED: losartan 25mg tablet PO SCH (08:00)
== END 2024-08-12 16:34 | DRG 64 ==
LOC: ER 17:56 → UNDOADMIN 08-07 01:28 → ED HOLD 08-07 01:28 → ORTHO 4S 08-07 13:44
PROVIDERS: ADMIT Internal Medicine Pulmonary Disease; ATTEND Internal Medicine
DX: I63.542 Cerebral infarction due to unspecified occlusion or stenosis of left cerebellar artery (principal); G93.41 Metabolic encephalopathy; N17.0 Acute kidney failure with tubular necrosis; T86.12 Kidney transplant failure; E11.319 Type 2 diabetes mellitus with unspecified diabetic retinopathy without macular edema; I10 Essential (primary) hypertension; I16.0 Hypertensive urgency; H54.3 Unqualified visual loss, both eyes; E86.0 Dehydration; G47.33 Obstructive sleep apnea (adult) (pediatric); E66.01 Morbid (severe) obesity due to excess calories; Z88.5 Allergy status to narcotic agent; Z88.8 Allergy status to other drugs, medicaments and biological substances; Z91.040 Latex allergy status; Z68.32 Body mass index [BMI] 32.0-32.9, adult
CPT/HCPCS: 36415; 70450; 70551; 71045; 80053; 80061; 81001; 82948; 83036; 83735; 83880; 84132; 84484; 85025; 87040; 87081; 87811; 90686; 93005; 93306; 93308; 93880; 96360; 97110; 97116; 97163; 97530; 99285; A6250; G0378; J0360; J1644; J1815; J2405; J7030; J7507; J7512; J7517

== ENCOUNTER 2024-10-01 10:58 | Inpatient (IN) | payer MEDICARE, MEDICAID ==
[~2024-10-01] VITALS: Ht 154.9 cm; Wt 84.4 kg
[~2024-10-01 10:58] MED LIST changes: -CEFU500T66 PO; -INSU100C10 SQ; -INSU100V9 SQ; +LANTUS SQ; -MECL-302 PO; -ONDA-245 PO
[2024-10-01 11:31] LABS: BASOPHILS % (AUTO) 0.1 % (0-1); EOSINOPHILS % (AUTO) 0.2 % (0-6); HEMATOCRIT 35.7 % (35.0-45.0); HEMOGLOBIN 11.5 g/dl (12.0-16.0); LYMPHOCYTES # (AUTO) 0.7 X10'3 (1.1-4.8); LYMPHOCYTES % (AUTO) 5.4 % (21-51); MEAN CORPUSCULAR HEMOGLOBIN 29.9 PG (27.0-31.0); MEAN CORPUSCULAR HGB CONC 32.2 g/dL (33.0-36.5); MEAN CORPUSCULAR VOLUME 92.8 FL (78-98); MONOCYTES % (AUTO) 7.8 % (2-12); NEUTROPHILS # (AUTO) 11.6 X10'3 (1.8-7.7); NEUTROPHILS % (AUTO) 86.5 % (42-75); PLATELET COUNT 388 X10'3 (140-440); RED BLOOD COUNT 3.85 X10'6 (4.20-5.60); RED CELL DISTRIBUTION WIDTH 14.2 % (11.5-14.5); WHITE BLOOD COUNT 13.4 X10'3 (4.5-11.0)
[2024-10-01] MEDS: ondansetron/PF 4mg/2ml inj IV ONE (11:38)
[2024-10-01] MEDS: CefTRIAXone 2gm/D5W 50ml BAG 50 ML IV ONE (11:39)
[2024-10-01 11:59] LABS: ALANINE AMINOTRANSFERASE 14 U/L (12-78); ALBUMIN 2.7 G/DL (3.4-5.0); ALBUMIN/GLOBULIN RATIO 0.6 (1.1-1.5); ALKALINE PHOSPHATASE 117 IU/L (46-116); ANION GAP 13 (8-16); ASPARTATE AMINO TRANSFERASE 15 U/L (10-37); BILIRUBIN,TOTAL 0.4 MG/DL (0.1-1.0); BLOOD UREA NITROGEN 58 MG/DL (7-18); BUN/CREATININE RATIO 33.5 (10.0-20.0); C-REACTIVE PROTEIN 15.71 MG/DL (0.0-0.5); CALCIUM 8.7 MG/DL (8.5-10.1); CHLORIDE 103 MMOL/L (99-107); CREATININE 1.73 MG/DL (0.40-0.90); FREE T4 (FREE THYROXINE) 1.34 NG/DL (0.73-1.40); GLUCOSE 310 MG/DL (70-104); POTASSIUM 5.3 MMOL/L (3.5-5.1); PRO BRAIN NATRIURETIC PEPTIDE 1290 PG/ML (0-125); SODIUM 134 MMOL/L (135-145); THYROID STIMULATING HORMONE 0.37 ulU/ml (0.34-4.50); TOTAL CARBON DIOXIDE 18.3 MMOL/L (24-32); TOTAL PROTEIN 7.1 G/DL (6.4-8.2); eCRCL 27 ML/MIN; eGFR 30 ML/MIN
[2024-10-01 12:19] LABS: BILIRUBIN,URINE NEGATIVE (Neg); CLARITY,URINE CLOUDY (Clear); COLOR,URINE YELLOW (Yellow); GLUCOSE, URINE NEGATIVE (Neg); KETONES,URINE NEGATIVE (Neg); LEUKOCYTE ESTERASE ,URINE MODERATE (Neg); NITRITES, URINE POSITIVE (Neg); OCCULT BLOOD,URINE TRACE-INTACT (Neg); PROTEIN,URINE 30 mg/dl (Neg); UROBILINOGEN,URINE 0.2 E.U/dL (0.2-1.0)
[2024-10-01 12:24] LABS: UA COLLECTION TYPE STRAIGHT CATH
[2024-10-01 12:25] LABS: BACTERIA,URINE 4+ /HPF (Neg); SQUAMOUS EPITHELIAL CELL,UR FEW /LPF (FEW); WBC,URINE TNTC /HPF (0-4)
[2024-10-01 12:26] LABS: RBC,URINE 0-2 /HPF (0-2)
[2024-10-01] MEDS ORDERED: ipratropium/albuterol 3ml nebule NEB PRN ×2 (13:25)
[2024-10-01] MEDS ORDERED: ondansetron/PF 4mg/2ml inj IV PRN (13:25)
[2024-10-01] MEDS ORDERED: potassium Cl 40MEQ/1/2NS 520ml 520 ML IV PRN (13:25)
[2024-10-01] MEDS ORDERED: acetaminophen 325mg tablet PO PRN (13:25)
[2024-10-01] MEDS ORDERED: potassium Cl 20 mEq SR tablet PO PRN ×2 (13:25)
[2024-10-01] MEDS ORDERED: mag hydrox/Alum hydrox/simeth 30ml oral suspension PO PRN (13:25)
[2024-10-01] MEDS ORDERED: magnesium Cl slow-release 64mg tablet PO PRN (13:25)
[2024-10-01] MEDS ORDERED: magnesium sulf-water 2g/50mL 50 ML IV PRN (13:25)
[2024-10-01] MEDS ORDERED: cloNIDine 0.1 mg tablet PO PRN (13:25)
[2024-10-01] MEDS ORDERED: magnesium hydroxide 30ml (MOM) UD suspension PO PRN (13:25)
[2024-10-01] MEDS ORDERED: magnesium sulf-water 4G/100mL 100 ML IV PRN (13:25)
[2024-10-01] MEDS ORDERED: dextrose 50%-water 50ml dispensing syringe IV PRN ×2 (13:40)
[2024-10-01] MEDS ORDERED: DEXTROSE 15 GM of carb/4 tabs (each vial/BOTTLE has 4 tablets) PO PRN ×2 (13:40)
[2024-10-01] MEDS ORDERED: glucagon, human recombinant 1mg kit SUBCUT PRN (13:40)
[2024-10-01] MEDS: VANCOMYCIN 1GM 200ML H20 (PEG) 200 ML IV SCH (14:24)
[2024-10-01] MEDS: loperamide 2mg capsule PO ONE (14:24)
[2024-10-01] MEDS: morphine 2 MG/ML inj. syringe IV PRN (14:26)
[2024-10-01 14:31] VITALS: PULSE 85; RESP 20; O2SAT 94
[2024-10-01] MEDS: methylPREDNISolone sod succ 125mg/2ml vial IV SCH (16:39)
[2024-10-01 18:00] VITALS: BP 161/62; PULSE 79; RESP 17; TEMP 97.4; O2SAT 93
[2024-10-01] MEDS: INSULIN LISPRO 100 UNIT/ML INSULN.PEN MULTI-DOSE SQ SCH (18:15)
[2024-10-01 20:00] VITALS: RESP 17; O2SAT 93
[2024-10-01] MEDS: K and/or MAG REPLACEMENT MC SCH (20:00)
[2024-10-01] MEDS ORDERED: VANCOMYCIN 1GM 200ML H20 (PEG) 200 ML IV SCH (20:00)
[2024-10-01 20:11] VITALS: PULSE 84; RESP 14; O2SAT 94
[2024-10-01] MEDS: lactobacillus rhamnosus 10,000 MMU CELLS/CAPSULE PO SCH (20:29)
[2024-10-01] MEDS: docusate sod 100mg capsule PO SCH (20:30)
[2024-10-01 22:00] VITALS: BP 164/73; PULSE 84; RESP 19; TEMP 97.3; O2SAT 95
[2024-10-01] MEDS: mycophenolate mofetil 250mg capsule PO SCH (22:06)
[2024-10-01] MEDS: tacrolimus anhydrous 1mg capsule PO SCH (22:06)
[2024-10-02] VITALS (8 sets, daily range): BP systolic 109–160; BP diastolic 45–66; PULSE 68–88; RESP 16–20; TEMP 97.3–98.6; O2SAT 94–98
[2024-10-02 06:02] LABS: BASOPHILS % (AUTO) 0 % (0-1); EOSINOPHILS % (AUTO) 0 % (0-6); HEMATOCRIT 37.1 % (35.0-45.0); HEMOGLOBIN 12.3 g/dl (12.0-16.0); LYMPHOCYTES # (AUTO) 0.5 X10'3 (1.1-4.8); LYMPHOCYTES % (AUTO) 4.7 % (21-51); MEAN CORPUSCULAR HEMOGLOBIN 30.6 PG (27.0-31.0); MEAN CORPUSCULAR HGB CONC 33.1 g/dL (33.0-36.5); MEAN CORPUSCULAR VOLUME 92.5 FL (78-98); MEAN PLATELET VOLUME 8.2 FL (7.4-10.4); MONOCYTES # (AUTO) 0.1 X10'3 (0-0.9); MONOCYTES % (AUTO) 0.8 % (2-12); NEUTROPHILS # (AUTO) 9.2 X10'3 (1.8-7.7); NEUTROPHILS % (AUTO) 94.5 % (42-75); PLATELET COUNT 372 X10'3 (140-440); RED BLOOD COUNT 4.01 X10'6 (4.20-5.60); RED CELL DISTRIBUTION WIDTH 14.3 % (11.5-14.5); WHITE BLOOD COUNT 9.8 X10'3 (4.5-11.0)
[2024-10-02 06:09] LABS: % IRON SATURATION 24 % (11-46); IRON 38 UG/DL (49-151); TOTAL IRON BINDING CAPACITY 158 UG/DL (259-388)
[2024-10-02 06:22] LABS: ALANINE AMINOTRANSFERASE 12 U/L (12-78); ALBUMIN 2.6 G/DL (3.4-5.0); ALBUMIN/GLOBULIN RATIO 0.5 (1.1-1.5); ALKALINE PHOSPHATASE 122 IU/L (46-116); ANION GAP 14 (8-16); ASPARTATE AMINO TRANSFERASE 17 U/L (10-37); BILIRUBIN,TOTAL 0.4 MG/DL (0.1-1.0); BLOOD UREA NITROGEN 61 MG/DL (7-18); BUN/CREATININE RATIO 32.6 (10.0-20.0); CHLORIDE 102 MMOL/L (99-107); CREATININE 1.87 MG/DL (0.40-0.90); FERRITIN 544 NG/ML (8-252); GLUCOSE 293 MG/DL (70-104); MAGNESIUM 2.1 MG/DL (1.5-2.4); POTASSIUM 5.6 MMOL/L (3.5-5.1); PRO BRAIN NATRIURETIC PEPTIDE 2306 PG/ML (0-125); SODIUM 134 MMOL/L (135-145); TOTAL CARBON DIOXIDE 18.2 MMOL/L (24-32); TOTAL PROTEIN 7.5 G/DL (6.4-8.2); eCRCL 25 ML/MIN; eGFR 28 ML/MIN
[2024-10-02] MEDS: pantoprazole 40mg Tablet.DR PO SCH (07:39)
[2024-10-02] MEDS: aspirin 81mg, enteric-coated 1 TAB TABLET.DR PO SCH (07:39)
[2024-10-02] MEDS: furosemide 40mg/4ml inj IV SCH (07:39)
[2024-10-02] MEDS: losartan 25mg tablet PO SCH (07:40)
[2024-10-02] MEDS: CefTRIAXone/D5W-Rocephin 1gm 50 ML IV SCH (07:41)
[2024-10-02] MEDS: tacrolimus anhydrous 1mg capsule PO SCH (07:41)
[2024-10-02] MEDS: enoxaparin 40mg/0.4ml syringe SUBCUT SCH (07:41)
[2024-10-02] MEDS: loratadine 10mg tablet PO SCH (07:42)
[2024-10-02] MEDS: insulin glargine (Lantus) pen - multi-dose SQ SCH (07:44)
[2024-10-02] MEDS: predniSONE 5mg tablet PO SCH (08:00)
[2024-10-02] MEDS ORDERED: hydrALAZINE 20mg/ml inj. IV PRN (08:55)
[2024-10-02] MEDS ORDERED: cloNIDine 0.1 mg tablet PO PRN (08:55)
[2024-10-02 10:35] LABS: OCCULT BLOOD STOOL NEGATIVE (Neg)
[2024-10-02 11:12] LABS: C DIFFICILE TOXINS A&B NEGATIVE (Neg)
[2024-10-02 11:13] LABS: C DIFF ANTIGEN NEGATIVE (NEGATIVE); C DIFF SPECIMEN=DIARRHEA? ACCEPTABLE
[2024-10-02] MEDS: insulin glargine (Lantus) pen - multi-dose SQ ONE (13:13)
[2024-10-02] MEDS: INSULIN LISPRO 100 UNIT/ML INSULN.PEN MULTI-DOSE SQ ONE ×3 (13:15→20:35)
[2024-10-02] MEDS: benzonatate 100mg capsule PO PRN (15:30)
[2024-10-02] MEDS: insulin Lispro (HumaLOG) vial - multi-dose SQ ONE (16:40)
[2024-10-02] MEDS: ferrous sulfate 325mg tablet PO SCH (16:53)
[2024-10-02] MEDS: NUT.TX.GLUC.INTOLER,LAC-FR,SOY (GLUCERNA) 237 ML PO SCH (18:56)
[2024-10-03] VITALS (8 sets, daily range): BP systolic 120–143; BP diastolic 50–59; PULSE 77–80; RESP 16–20; TEMP 97.4–97.9; O2SAT 95–99
[2024-10-03 04:30] LABS: BASOPHILS % (AUTO) 0.1 % (0-1); EOSINOPHILS % (AUTO) 0 % (0-6); HEMOGLOBIN 11.6 g/dl (12.0-16.0); LYMPHOCYTES # (AUTO) 0.8 X10'3 (1.1-4.8); LYMPHOCYTES % (AUTO) 5.1 % (21-51); MEAN CORPUSCULAR HEMOGLOBIN 29.9 PG (27.0-31.0); MEAN CORPUSCULAR VOLUME 90.5 FL (78-98); MEAN PLATELET VOLUME 7.9 FL (7.4-10.4); MONOCYTES # (AUTO) 0.4 X10'3 (0-0.9); MONOCYTES % (AUTO) 2.7 % (2-12); NEUTROPHILS # (AUTO) 13.6 X10'3 (1.8-7.7); NEUTROPHILS % (AUTO) 92.1 % (42-75); PLATELET COUNT 449 X10'3 (140-440); RED BLOOD COUNT 3.87 X10'6 (4.20-5.60); RED CELL DISTRIBUTION WIDTH 14.2 % (11.5-14.5); WHITE BLOOD COUNT 14.8 X10'3 (4.5-11.0)
[2024-10-03 05:05] LABS: ALANINE AMINOTRANSFERASE 10 U/L (12-78); ALBUMIN 2.3 G/DL (3.4-5.0); ALBUMIN/GLOBULIN RATIO 0.5 (1.1-1.5); ALKALINE PHOSPHATASE 113 IU/L (46-116); ANION GAP 14 (8-16); ASPARTATE AMINO TRANSFERASE 10 U/L (10-37); BILIRUBIN,TOTAL 0.2 MG/DL (0.1-1.0); BLOOD UREA NITROGEN 77 MG/DL (7-18); BUN/CREATININE RATIO 40.5 (10.0-20.0); CALCIUM 8.8 MG/DL (8.5-10.1); CHLORIDE 101 MMOL/L (99-107); GLUCOSE 199 MG/DL (70-104); POTASSIUM 4.8 MMOL/L (3.5-5.1); PRO BRAIN NATRIURETIC PEPTIDE 3096 PG/ML (0-125); SODIUM 134 MMOL/L (135-145); TOTAL CARBON DIOXIDE 18.8 MMOL/L (24-32); TOTAL PROTEIN 6.7 G/DL (6.4-8.2); eCRCL 25 ML/MIN; eGFR 27 ML/MIN
[2024-10-03] MEDS: predniSONE 5mg tablet PO SCH (07:41)
[2024-10-03] MEDS: insulin glargine (Lantus) pen - multi-dose SQ SCH ×2 (07:57→21:54)
[2024-10-03] MEDS ORDERED: HYDROcodone/acetaminophen 5mg/325mg tablet PO PRN (10:35)
[2024-10-03] MEDS: oxyCODONE/APAP 5-325mg tablet PO PRN (13:47)
[2024-10-03] MEDS: guaiFENesin ER 600mg tablet PO SCH (19:50)
[2024-10-04] VITALS (7 sets, daily range): BP systolic 117–136; BP diastolic 51–88; PULSE 73–83; RESP 14–18; TEMP 97.4–98; O2SAT 94–97
[2024-10-04 06:18] LABS: BASOPHILS % (AUTO) 0 % (0-1); EOSINOPHILS % (AUTO) 0 % (0-6); HEMATOCRIT 36.5 % (35.0-45.0); HEMOGLOBIN 12.2 g/dl (12.0-16.0); LYMPHOCYTES # (AUTO) 0.8 X10'3 (1.1-4.8); LYMPHOCYTES % (AUTO) 5.2 % (21-51); MEAN CORPUSCULAR HEMOGLOBIN 30.4 PG (27.0-31.0); MEAN CORPUSCULAR HGB CONC 33.4 g/dL (33.0-36.5); MEAN PLATELET VOLUME 8.4 FL (7.4-10.4); MONOCYTES # (AUTO) 0.6 X10'3 (0-0.9); MONOCYTES % (AUTO) 3.9 % (2-12); NEUTROPHILS # (AUTO) 13.3 X10'3 (1.8-7.7); NEUTROPHILS % (AUTO) 90.9 % (42-75); PLATELET COUNT 480 X10'3 (140-440); RED BLOOD COUNT 4.01 X10'6 (4.20-5.60); RED CELL DISTRIBUTION WIDTH 14.2 % (11.5-14.5); WHITE BLOOD COUNT 14.6 X10'3 (4.5-11.0)
[2024-10-04 06:48] LABS: ALANINE AMINOTRANSFERASE 16 U/L (12-78); ALBUMIN 2.2 G/DL (3.4-5.0); ALBUMIN/GLOBULIN RATIO 0.5 (1.1-1.5); ALKALINE PHOSPHATASE 128 IU/L (46-116); ANION GAP 11 (8-16); ASPARTATE AMINO TRANSFERASE 24 U/L (10-37); BILIRUBIN,TOTAL 0.4 MG/DL (0.1-1.0); BLOOD UREA NITROGEN 82 MG/DL (7-18); BUN/CREATININE RATIO 50.3 (10.0-20.0); CALCIUM 9.3 MG/DL (8.5-10.1); CHLORIDE 105 MMOL/L (99-107); CREATININE 1.63 MG/DL (0.40-0.90); GLUCOSE 252 MG/DL (70-104); MAGNESIUM 2.3 MG/DL (1.5-2.4); PRO BRAIN NATRIURETIC PEPTIDE 1255 PG/ML (0-125); SODIUM 134 MMOL/L (135-145); TOTAL CARBON DIOXIDE 17.7 MMOL/L (24-32); TOTAL PROTEIN 6.7 G/DL (6.4-8.2); eCRCL 29 ML/MIN; eGFR 33 ML/MIN
[2024-10-04] MEDS: VANCOMYCIN LEVEL IV ONE (15:11)
[2024-10-04] MEDS: VANCOMYCIN/WATER FOR INJ (PEG) 750MG/150 ML IVPB IV SCH (16:13)
[2024-10-05] VITALS (8 sets, daily range): BP systolic 130–150; BP diastolic 69–93; PULSE 77–88; RESP 14–20; TEMP 96.1–98; O2SAT 96–99
[2024-10-05 09:06] LABS: BASOPHILS % (AUTO) 0 % (0-1); EOSINOPHILS % (AUTO) 0.1 % (0-6); HEMATOCRIT 40.3 % (35.0-45.0); HEMOGLOBIN 13.4 g/dl (12.0-16.0); LYMPHOCYTES # (AUTO) 1.4 X10'3 (1.1-4.8); LYMPHOCYTES % (AUTO) 12.4 % (21-51); MEAN CORPUSCULAR HEMOGLOBIN 30.4 PG (27.0-31.0); MEAN CORPUSCULAR HGB CONC 33.3 g/dL (33.0-36.5); MEAN CORPUSCULAR VOLUME 91.4 FL (78-98); MONOCYTES # (AUTO) 1.1 X10'3 (0-0.9); MONOCYTES % (AUTO) 9.3 % (2-12); NEUTROPHILS # (AUTO) 8.9 X10'3 (1.8-7.7); NEUTROPHILS % (AUTO) 78.2 % (42-75); PLATELET COUNT 521 X10'3 (140-440); RED BLOOD COUNT 4.41 X10'6 (4.20-5.60); RED CELL DISTRIBUTION WIDTH 14.2 % (11.5-14.5); WHITE BLOOD COUNT 11.4 X10'3 (4.5-11.0)
[2024-10-05 09:20] LABS: ALANINE AMINOTRANSFERASE 11 U/L (12-78); ALBUMIN 2.6 G/DL (3.4-5.0); ALBUMIN/GLOBULIN RATIO 0.6 (1.1-1.5); ALKALINE PHOSPHATASE 113 IU/L (46-116); ANION GAP 11 (8-16); ASPARTATE AMINO TRANSFERASE 11 U/L (10-37); BILIRUBIN,TOTAL 0.3 MG/DL (0.1-1.0); BLOOD UREA NITROGEN 79 MG/DL (7-18); CALCIUM 8.7 MG/DL (8.5-10.1); CHLORIDE 105 MMOL/L (99-107); CREATININE 1.55 MG/DL (0.40-0.90); GLUCOSE 145 MG/DL (70-104); POTASSIUM 4.6 MMOL/L (3.5-5.1); SODIUM 137 MMOL/L (135-145); TOTAL CARBON DIOXIDE 21.5 MMOL/L (24-32); TOTAL PROTEIN 7.1 G/DL (6.4-8.2); eCRCL 31 ML/MIN; eGFR 35 ML/MIN
[2024-10-06] VITALS (8 sets, daily range): BP systolic 93–137; BP diastolic 37–62; PULSE 72–86; RESP 12–18; TEMP 97–98.4; O2SAT 94–98
[2024-10-06 06:57] LABS: BASOPHILS % (AUTO) 0.1 % (0-1); EOSINOPHILS # (AUTO) 0.1 X10'3 (0-0.9); EOSINOPHILS % (AUTO) 1.2 % (0-6); HEMATOCRIT 39.6 % (35.0-45.0); HEMOGLOBIN 13.3 g/dl (12.0-16.0); LYMPHOCYTES # (AUTO) 1.6 X10'3 (1.1-4.8); LYMPHOCYTES % (AUTO) 17.2 % (21-51); MEAN CORPUSCULAR HEMOGLOBIN 30.8 PG (27.0-31.0); MEAN CORPUSCULAR HGB CONC 33.6 g/dL (33.0-36.5); MEAN CORPUSCULAR VOLUME 91.7 FL (78-98); MONOCYTES % (AUTO) 10.2 % (2-12); NEUTROPHILS # (AUTO) 6.7 X10'3 (1.8-7.7); NEUTROPHILS % (AUTO) 71.3 % (42-75); PLATELET COUNT 404 X10'3 (140-440); RED BLOOD COUNT 4.31 X10'6 (4.20-5.60); RED CELL DISTRIBUTION WIDTH 14.4 % (11.5-14.5); WHITE BLOOD COUNT 9.4 X10'3 (4.5-11.0)
[2024-10-06 07:32] LABS: ALANINE AMINOTRANSFERASE 14 U/L (12-78); ALBUMIN 2.4 G/DL (3.4-5.0); ALBUMIN/GLOBULIN RATIO 0.6 (1.1-1.5); ALKALINE PHOSPHATASE 113 IU/L (46-116); ANION GAP 10 (8-16); ASPARTATE AMINO TRANSFERASE 9 U/L (10-37); BILIRUBIN,TOTAL 0.4 MG/DL (0.1-1.0); BLOOD UREA NITROGEN 68 MG/DL (7-18); BUN/CREATININE RATIO 51.1 (10.0-20.0); CALCIUM 8.8 MG/DL (8.5-10.1); CHLORIDE 107 MMOL/L (99-107); CREATININE 1.33 MG/DL (0.40-0.90); GLUCOSE 188 MG/DL (70-104); POTASSIUM 4.8 MMOL/L (3.5-5.1); SODIUM 137 MMOL/L (135-145); TOTAL CARBON DIOXIDE 20.1 MMOL/L (24-32); TOTAL PROTEIN 6.6 G/DL (6.4-8.2); eCRCL 36 ML/MIN; eGFR 41 ML/MIN
[2024-10-07] VITALS (9 sets, daily range): BP systolic 116–153; BP diastolic 37–69; PULSE 78–86; RESP 16–20; TEMP 96–97.6; O2SAT 95–100
[2024-10-07] MEDS ORDERED: VANCOMYCIN LEVEL IV ONE (14:30)
[2024-10-07 16:50] LABS: BASOPHILS % (AUTO) 0.1 % (0-1); EOSINOPHILS # (AUTO) 0.2 X10'3 (0-0.9); EOSINOPHILS % (AUTO) 1.2 % (0-6); HEMATOCRIT 38.4 % (35.0-45.0); HEMOGLOBIN 12.1 g/dl (12.0-16.0); LYMPHOCYTES # (AUTO) 1.2 X10'3 (1.1-4.8); MEAN CORPUSCULAR HEMOGLOBIN 29.7 PG (27.0-31.0); MEAN CORPUSCULAR HGB CONC 31.5 g/dL (33.0-36.5); MEAN CORPUSCULAR VOLUME 94.3 FL (78-98); MEAN PLATELET VOLUME 8.9 FL (7.4-10.4); MONOCYTES # (AUTO) 0.8 X10'3 (0-0.9); MONOCYTES % (AUTO) 5.9 % (2-12); NEUTROPHILS # (AUTO) 10.8 X10'3 (1.8-7.7); NEUTROPHILS % (AUTO) 83.8 % (42-75); PLATELET COUNT 397 X10'3 (140-440); RED BLOOD COUNT 4.07 X10'6 (4.20-5.60); RED CELL DISTRIBUTION WIDTH 14.7 % (11.5-14.5); WHITE BLOOD COUNT 12.9 X10'3 (4.5-11.0)
[2024-10-07 17:09] LABS: ALBUMIN 2.4 G/DL (3.4-5.0); ANION GAP 12 (8-16); BLOOD UREA NITROGEN 78 MG/DL (7-18); BUN/CREATININE RATIO 42.2 (10.0-20.0); CALCIUM 8.3 MG/DL (8.5-10.1); CHLORIDE 104 MMOL/L (99-107); CREATININE 1.85 MG/DL (0.40-0.90); GLUCOSE 256 MG/DL (70-104); POTASSIUM 4.4 MMOL/L (3.5-5.1); SODIUM 133 MMOL/L (135-145); TOTAL CARBON DIOXIDE 16.7 MMOL/L (24-32); eCRCL 26 ML/MIN; eGFR 28 ML/MIN
[2024-10-08] VITALS (8 sets, daily range): BP systolic 113–140; BP diastolic 46–78; PULSE 70–82; RESP 15–19; TEMP 96.8–98.1; O2SAT 96–100
[2024-10-08 10:15] LABS: BASOPHILS % (AUTO) 0 % (0-1); EOSINOPHILS # (AUTO) 0.4 X10'3 (0-0.9); EOSINOPHILS % (AUTO) 2.6 % (0-6); HEMATOCRIT 40.2 % (35.0-45.0); HEMOGLOBIN 12.9 g/dl (12.0-16.0); MEAN CORPUSCULAR HEMOGLOBIN 29.7 PG (27.0-31.0); MEAN CORPUSCULAR HGB CONC 32.2 g/dL (33.0-36.5); MEAN CORPUSCULAR VOLUME 92.5 FL (78-98); MEAN PLATELET VOLUME 8.6 FL (7.4-10.4); MONOCYTES # (AUTO) 1.2 X10'3 (0-0.9); MONOCYTES % (AUTO) 8.6 % (2-12); NEUTROPHILS % (AUTO) 73.8 % (42-75); PLATELET COUNT 469 X10'3 (140-440); RED BLOOD COUNT 4.34 X10'6 (4.20-5.60); RED CELL DISTRIBUTION WIDTH 14.3 % (11.5-14.5); WHITE BLOOD COUNT 13.6 X10'3 (4.5-11.0)
[2024-10-08 11:11] LABS: ALBUMIN 2.7 G/DL (3.4-5.0); ANION GAP 10 (8-16); BLOOD UREA NITROGEN 75 MG/DL (7-18); BUN/CREATININE RATIO 44.6 (10.0-20.0); CALCIUM 8.7 MG/DL (8.5-10.1); CHLORIDE 107 MMOL/L (99-107); CREATININE 1.68 MG/DL (0.40-0.90); GLUCOSE 136 MG/DL (70-104); POTASSIUM 4.1 MMOL/L (3.5-5.1); SODIUM 138 MMOL/L (135-145); TOTAL CARBON DIOXIDE 20.6 MMOL/L (24-32); eCRCL 28 ML/MIN; eGFR 32 ML/MIN
[2024-10-08] MEDS: insulin glargine (Lantus) pen - multi-dose SQ SCH (12:43)
[2024-10-08] MEDS: normal saline 1000ml 1,000 ML IV SCH (14:30)
[2024-10-09] VITALS (10 sets, daily range): BP systolic 133–148; BP diastolic 52–78; PULSE 66–90; RESP 14–20; TEMP 96–98.4; O2SAT 93–100
[2024-10-09 04:16] LABS: BASOPHILS % (AUTO) 0.1 % (0-1); EOSINOPHILS # (AUTO) 0.2 X10'3 (0-0.9); EOSINOPHILS % (AUTO) 1.9 % (0-6); HEMATOCRIT 33.3 % (35.0-45.0); HEMOGLOBIN 11.1 g/dl (12.0-16.0); LYMPHOCYTES # (AUTO) 1.6 X10'3 (1.1-4.8); LYMPHOCYTES % (AUTO) 14.8 % (21-51); MEAN CORPUSCULAR HEMOGLOBIN 30.5 PG (27.0-31.0); MEAN CORPUSCULAR HGB CONC 33.4 g/dL (33.0-36.5); MEAN CORPUSCULAR VOLUME 91.5 FL (78-98); MEAN PLATELET VOLUME 8.1 FL (7.4-10.4); MONOCYTES % (AUTO) 9.4 % (2-12); NEUTROPHILS # (AUTO) 7.9 X10'3 (1.8-7.7); NEUTROPHILS % (AUTO) 73.8 % (42-75); PLATELET COUNT 348 X10'3 (140-440); RED BLOOD COUNT 3.64 X10'6 (4.20-5.60); RED CELL DISTRIBUTION WIDTH 14.2 % (11.5-14.5); WHITE BLOOD COUNT 10.7 X10'3 (4.5-11.0)
[2024-10-09 04:33] LABS: ALBUMIN 2.2 G/DL (3.4-5.0); ANION GAP 9 (8-16); BLOOD UREA NITROGEN 65 MG/DL (7-18); BUN/CREATININE RATIO 45.5 (10.0-20.0); CALCIUM 7.9 MG/DL (8.5-10.1); CHLORIDE 109 MMOL/L (99-107); CREATININE 1.43 MG/DL (0.40-0.90); GLUCOSE 159 MG/DL (70-104); POTASSIUM 4.4 MMOL/L (3.5-5.1); SODIUM 138 MMOL/L (135-145); eCRCL 33 ML/MIN; eGFR 38 ML/MIN
[2024-10-09] MEDS: enoxaparin 30mg/0.3ml syringe SUBCUT SCH (07:48)
[2024-10-09] MEDS: PERFLUTREN PROTEIN-A MICROSPHR (Optison) 0.22 MG/ML 3ML VIAL IV ONE (07:48)
[2024-10-09] MEDS: doxycycline inj 100 MG in normal saline 100ml IV soln 100 ML IV SCH (12:42)
[2024-10-09] MEDS ORDERED: LANTUS SQ (17:42)
[2024-10-10 04:27] LABS: BASOPHILS % (AUTO) 0.2 % (0-1); EOSINOPHILS # (AUTO) 0.3 X10'3 (0-0.9); EOSINOPHILS % (AUTO) 4.1 % (0-6); HEMATOCRIT 33.1 % (35.0-45.0); HEMOGLOBIN 10.9 g/dl (12.0-16.0); MEAN CORPUSCULAR HEMOGLOBIN 30.1 PG (27.0-31.0); MEAN CORPUSCULAR HGB CONC 32.8 g/dL (33.0-36.5); MEAN CORPUSCULAR VOLUME 91.9 FL (78-98); MONOCYTES % (AUTO) 12.8 % (2-12); NEUTROPHILS # (AUTO) 4.2 X10'3 (1.8-7.7); NEUTROPHILS % (AUTO) 55.9 % (42-75); PLATELET COUNT 347 X10'3 (140-440); RED BLOOD COUNT 3.61 X10'6 (4.20-5.60); RED CELL DISTRIBUTION WIDTH 14.2 % (11.5-14.5); WHITE BLOOD COUNT 7.5 X10'3 (4.5-11.0)
[2024-10-10 04:40] LABS: ALBUMIN 2.1 G/DL (3.4-5.0); ANION GAP 8 (8-16); BLOOD UREA NITROGEN 40 MG/DL (7-18); CHLORIDE 115 MMOL/L (99-107); CREATININE 1.11 MG/DL (0.40-0.90); GLUCOSE 63 MG/DL (70-104); POTASSIUM 4.3 MMOL/L (3.5-5.1); SODIUM 143 MMOL/L (135-145); TOTAL CARBON DIOXIDE 20.2 MMOL/L (24-32); eCRCL 43 ML/MIN; eGFR 51 ML/MIN
[2024-10-10 07:04] VITALS: BP 138/51; PULSE 71; RESP 18; TEMP 97.8; O2SAT 99
[2024-10-10 07:15] VITALS: RESP 18; O2SAT 99
[2024-10-10] MEDS: CefTRIAXone 2gm/D5W 50ml BAG 50 ML IV SCH (07:39)
[2024-10-10 10:51] VITALS: BP 150/59; PULSE 85; RESP 14; TEMP 97.8; O2SAT 99
[2024-10-10 12:56] VITALS: RESP 14
[2024-10-10 14:21] VITALS: PULSE 84; RESP 15; O2SAT 98
[2024-10-10] MEDS ORDERED: DOXY100C2 PO (14:48)
[2024-10-10] MEDS ORDERED: CEFD300C3 PO (14:49)
[2024-10-23 14:52] LABS: OCCULT BLOOD STOOL POSITIVE (Neg)
== END 2024-10-10 15:47 | disposition home health service (06) | DRG 682 ==
LOC: ER 10:59 → ED HOLD 13:35 → UNDOADMIN 13:35 → ED HOLD 16:25 → SUR 3N 17:15 → ED HOLD 17:15
PROVIDERS: ADMIT Internal Medicine; ATTEND Internal Medicine
DX: N17.0 Acute kidney failure with tubular necrosis (principal); G93.41 Metabolic encephalopathy; J15.9 Unspecified bacterial pneumonia; R65.11 Systemic inflammatory response syndrome (SIRS) of non-infectious origin with acute organ dysfunction; N30.00 Acute cystitis without hematuria; I13.0 Hypertensive heart and chronic kidney disease with heart failure and stage 1 through stage 4 chronic kidney disease, or unspecified chronic kidney disease; Z68.42 Body mass index [BMI] 45.0-49.9, adult; Z94.0 Kidney transplant status; E11.65 Type 2 diabetes mellitus with hyperglycemia; E11.22 Type 2 diabetes mellitus with diabetic chronic kidney disease; E66.01 Morbid (severe) obesity due to excess calories; D50.8 Other iron deficiency anemias; I50.9 Heart failure, unspecified; E87.5 Hyperkalemia; E78.5 Hyperlipidemia, unspecified; E11.649 Type 2 diabetes mellitus with hypoglycemia without coma; H54.8 Legal blindness, as defined in USA; N18.30 Chronic kidney disease, stage 3 unspecified; E86.0 Dehydration; Y83.8 Other surgical procedures as the cause of abnormal reaction of the patient, or of later complication, without mention of misadventure at the time of the procedure; Z88.5 Allergy status to narcotic agent; Z91.041 Radiographic dye allergy status; Y92.89 Other specified places as the place of occurrence of the external cause; Z91.040 Latex allergy status; Z79.82 Long term (current) use of aspirin; Z79.4 Long term (current) use of insulin; Z79.899 Other long term (current) drug therapy; Z86.73 Personal history of transient ischemic attack (TIA), and cerebral infarction without residual deficits; Z83.3 Family history of diabetes mellitus; B96.1 Klebsiella pneumoniae [K. pneumoniae] as the cause of diseases classified elsewhere
CPT/HCPCS: 36415; 71045; 71250; 74176; 80048; 80053; 80202; 81001; 82272; 82607; 82728; 82948; 83540; 83550; 83605; 83735; 83880; 84439; 84443; 84484; 85025; 85651; 86140; 87040; 87045; 87046; 87077; 87081; 87088; 87186; 87324; 87449; 89055; 93005; 93308; 94760; 96365; 96375; 97110; 97116; 97161; 97530; 99285; A6250; A6258; A6449; C1758; G0378; J0696; J1650; J1815; J1940; J2270; J2405; J2919; J3372; J3490; J7030; J7507; J7512; J7517

== ENCOUNTER 2025-04-15 12:29 | Emergency (ER) | payer MEDICARE, MEDICAID ==
[~2025-04-15] VITALS: Ht 154.9 cm; Wt 86.4 kg
[~2025-04-15 12:29] MED LIST changes: -FURO40TA4 PO
--- NOTE | 2025-04-15 13:41 | RADIOLOGY REPORT ---
CHEST RADIOGRAPH Indication: CP Technique: Single frontal view of the chest was obtained COMPARISON: DI CHEST,SINGLE VIEW on DOS: 10/01/24, DI CHEST,SINGLE VIEW on DOS: 08/06/24, CHEST,SINGLE VIEW on DOS: 05/15/23, CHEST,SINGLE VIEW on DOS: 03/28/22 FINDINGS: Lines and Tubes: None Lungs: Clear Pleura: No effusion. No pneumothorax. Cardiomediastinal contours: Unremarkable Bones: Unremarkable IMPRESSION: No acute disease.
[2025-04-15 13:50] LABS: BASOPHILS % (AUTO) 0.3 % (0-1); EOSINOPHILS % (AUTO) 0.3 % (0-6); HEMATOCRIT 33.4 % (35.0-45.0); LYMPHOCYTES # (AUTO) 0.7 X10'3 (1.1-4.8); LYMPHOCYTES % (AUTO) 6.4 % (21-51); MEAN CORPUSCULAR HEMOGLOBIN 28.7 PG (27.0-31.0); MEAN PLATELET VOLUME 8.4 FL (7.4-10.4); MONOCYTES # (AUTO) 0.7 X10'3 (0-0.9); MONOCYTES % (AUTO) 6.9 % (2-12); NEUTROPHILS # (AUTO) 9.2 X10'3 (1.8-7.7); NEUTROPHILS % (AUTO) 86.1 % (42-75); PLATELET COUNT 396 X10'3 (140-440); RED BLOOD COUNT 3.84 X10'6 (4.20-5.60); WHITE BLOOD COUNT 10.7 X10'3 (4.5-11.0)
[2025-04-15 14:02] LABS: ALBUMIN 2.6 G/DL (3.4-5.0); ANION GAP 12 (8-16); BLOOD UREA NITROGEN 59 MG/DL (7-18); BUN/CREATININE RATIO 28.2 (10.0-20.0); CALCIUM 8.7 MG/DL (8.5-10.1); CHLORIDE 98 MMOL/L (99-107); CREATININE 2.09 MG/DL (0.40-0.90); GLUCOSE 175 MG/DL (70-104); POTASSIUM 4.6 MMOL/L (3.5-5.1); PRO BRAIN NATRIURETIC PEPTIDE 1324 PG/ML (0-125); SODIUM 130 MMOL/L (135-145); eCRCL 22 ML/MIN; eGFR 24 ML/MIN
--- NOTE | 2025-04-15 14:34 | ELECTROCARDIOGRAPH REPORT ---
[facility] Test Date: 2025-04-15 Test Time: 12:43:47 Pat Name: KATELIN HARTMAN Department: EMERGENCY ROOM Room: Gender: F Oil Mixer: JANA : 1970 Requested By: TYRESE GASCA Order Number: [id number] Reading MD: Measurements Intervals [place] Rate: 79 P: 32 AK: 138 QRS: 264 QRSD: 86 T: 78 QT: 383 QTc: 440 Interpretive Statements Sinus rhythm Left anterior fascicular block Abnormal R-wave progression, late transition Please click the below link to view image of tracing.
--- NOTE | 2025-04-15 15:59 | Physician Documentation ---
History of Present Illness ~ Chief Complaint: Weakness Stated Complaint: ALOC R SIDE WEAKNESS Time Seen by MD: 14:19 OK to notify your PCP?: Yes Primary Medical Doctor: Franklyn Khalil MD Mode of Arrival: EMS, Stretcher HPI Reviewed discharge summary September 2024 community-acquired pneumonia, Klebsiella UTI, anemia, JUDSON, DM presenting for 1 week of right-sided weakness. Patient currently has no complaints History of renal transplant on tacrolimus mycophenolate prednisone, hypertension, IDDM Medication Reconciliation Allergies: Coded Allergies: prochlorperazine (Verified Allergy, Severe, MAKES PT FALL, 10/01/24) codeine (Verified Allergy, Intermediate, 10/01/24) latex (Verified Allergy, Unknown, 10/01/24) metoclopramide (Verified Allergy, Unknown, 10/01/24) morphine (Verified Allergy, Unknown, 10/01/24) Unknown- patient can't remember she just knows she can't have it. phendimetrazine (Verified Allergy, Unknown, 10/01/24) Scheduled Aspirin (Aspirin), 1 TAB PO BID, (Reported) Cephalexin (Cephalexin), 1 CAP PO Q8H Famotidine (Famotidine), 1 TAB PO HS, (Reported) Furosemide* (Lasix*), 2 TAB PO DAILY, (Reported) Insulin Glargine,Hum.rec.anlog* (Lantus*), 20 UNITS SUBCUT DAILY, (Reported) Loratadine (Loratadine), 1 TAB PO DAILY, (Reported) Losartan Potassium* (Cozaar*), 1 TAB PO DAILY, (Reported) Mycophenolate Mofetil (Cellcept), 1 TAB PO Q12H, (Reported) Prednisone (predniSONE tablet), 1 TAB PO DAILY, (Reported) Tacrolimus Anhydrous* (Prograf*), 2 CAP PO DAILY, (Reported) Tacrolimus Anhydrous* (Prograf*), 3 CAP PO HS, (Reported) Discontinued Medications Aspirin (Aspirin EC), 1 TAB PO DAILY, (Reported) Discontinued Reason: patient no longer taking Insulin Glargine,Hum.rec.anlog* (Lantus*), 10 UNITS SQ DAILY Discontinued Reason: patient no longer taking Pantoprazole Sodium (PROTONIX tablet), 1 TAB PO DAILY, (Reported) Discontinued Reason: patient no longer taking Past Medical History Past Medical History: Diabetic Retinopathy, Hypertension, Renal Disease, Diabetes Past Surgical History: abdominal surgery, orthopedic surgeries, other Other Past Surgical History: x2 renal transplant Patient History: Diabetes mellitus MOTHER FH: HTN (hypertension) FATHER MOTHER Alcohol Use: None Drug Use: none Lives with: Other Lives In: Home Review of Systems All Other Systems at this time: Reviewed and Negative Constitutional: Denies: fever Physical Exam Vital Signs: Temperature: 97.8, Source: Temporal, Heart Rate: 78, Respiratory Rate: 16, BP: 118/70, Pulse Oximetry: 99, Weight: 86.360 Physical Exam Well-appearing no distress resting comfortably in bed No JVD Moist mucous membranes Pulmonary clear to auscultation bilaterally Cardiac no murmur Abdomen is soft nontender Lower extremity no edema Left lower leg boot in place Awake alert oriented Cranial nerves 2-12 intact (blind) extraocular motions intact Normal speech no aphasia no dysarthria 5/5 bilateral upper and lower extremity strength No pronator drift Intact and equal bilateral facial and extremity sensation Progress Progress Note Independent interpretation of labs stable hemoglobin 11.0, proBNP 13 24 creatinine 2.09 increased from 1.11 on October 10, 2024 Results/Orders Reviewed/noted all lab results: Yes Results/Orders Orders - TYRESE DUNBAR MD Chest,Single View (04/15/25 13:19) Monitor (04/15/25 13:19) Saline Lock (04/15/25 13:19) Oxygen (04/15/25 13:19) Ct Head (04/15/25 16:50) [place] Prov.Neuro Consult (04/15/25 16:05) Straight Cath (04/15/25 ) Cult Urine + [place] Ct (04/15/25 19:16) Completed Orders - TYRESE DUNBAR MD Chest,Single View (04/15/25 13:19) Cbc/Diff (04/15/25 13:19) BMP (04/15/25 13:19) PBNP (04/15/25 13:19) Electrocardiogram (04/15/25 13:19) Hs Troponin I W Calculations (04/15/25 13:19) Hs Troponin I W Calculations (04/15/25 15:19) Ct Head (04/15/25 16:50) Ua W/Microscopic, Cult If Ind (04/15/25 18:55) Vital Signs 04/15/25 04/15/25 04/15/25 04/15/25 12:46 15:30 15:30 18:28 Temp 97.8 97.8 Pulse 82 78 79 Resp 18 16 16 B/P (MAP) 142/90 118/70 (86) 133/42 (72) Pulse Ox 100 99 99 O2 Flow Rate 0 04/15/25 04/15/25 04/15/25 18:29 21:10 22:51 Pulse 74 75 Resp 16 16 B/P (MAP) 119/87 (98) 140/34 Pulse Ox 98 99 Laboratory Tests Test 04/15/25 13:00 04/15/25 13:39 04/15/25 18:55 White Blood Count 10.7 Red Blood Count 3.84 L Hemoglobin 11.0 L Hematocrit 33.4 L Mean Corpuscular Volume 87.0 Mean Corpuscular Hemoglobin 28.7 Mean Corpuscular Hemoglobin Concent 33.0 Red Cell Distribution Width 13.0 Platelet Count 396 Mean Platelet Volume 8.4 Neutrophils (%) (Auto) 86.1 H Lymphocytes (%) (Auto) 6.4 L Monocytes (%) (Auto) 6.9 Eosinophils (%) (Auto) 0.3 Basophils (%) (Auto) 0.3 Neutrophils # (Auto) 9.2 H Lymphocytes # (Auto) 0.7 L Monocytes # (Auto) 0.7 Eosinophils # (Auto) 0.0 Basophils # (Auto) 0.0 CBC Comment Sodium Level 130 L Potassium Level 4.6 Chloride Level 98 L Carbon Dioxide Level 20.0 L Anion Gap 12 Blood Urea Nitrogen 59 H Creatinine 2.09 H Estimated GFR/1.73 m2 24 BUN/Creatinine Ratio 28.2 H Glucose Level 175 H Calcium Level 8.7 Troponin I High Sensitivity 13 13 Pro-B-Type Natriuretic Peptide 1324 H Albumin 2.6 L Chemistry Comments Troponin I High Sens Percent Delta 0 Troponin I Hi Sens Absolute Change 0 Urine Specimen Description Cln catch midstream Urine Color Yellow Urine Clarity Cloudy Urine pH 6.0 Urine Specific [place] 1.020 Urine Protein 100 H Urine Glucose (UA) Negative Urine Ketones Negative Urine Occult Blood Moderate H Urine Nitrite Negative Urine Bilirubin Negative Urine Urobilinogen 0.2 Urine Leukocyte Esterase Moderate H Urine RBC 20-50 Urine WBC Tntc H Urine Squamous Epithelial Cells None seen Urine Bacteria 4+ Urine Culture Indicated Indicated Volume Urine Centrifuged 10 ml Urine Comment Microbiology Date/Time Source Procedure Growth Status 04/15/25 19:16 Urine Clean Catch Midstream Urine Culture - Preliminary Culture received. Resulted EKG/XRAY/CT/US/VASC/MRI CT : Impression CT head independently interpreted by myself shows no intracranial hemorrhage Medical Decision Making Additional info obtained from: old records Differential Dx:Considerations: Include: CVA, hypotension, hypovolemia Departure Disposition: HOME / SELF CARE / HOMELESS Admitted to Inpatient Unit: to hospitalist Impression: Primary Impression: JUDSON (acute kidney injury) Additional Impression: Urinary tract infection Qualified Codes: N30.00 - Acute cystitis without hematuria Additional Impression Text Assumed care of patient from Dr. Dunbar. Patient who reported weakness this morning. Labs revealed urinary tract infection. Patient is feeling better in the ER. Sending out on Keflex. Neuro consult recommended follow-up outpatient. They felt she was at her baseline. Discharged home in good condition. She is to return here if new or worsening symptoms otherwise follow-up with PCP. Condition: Stable Discharge Instructions: Urinary Tract Infection, Adult Referrals: NO PRIMARY CARE PROVIDER (PCP) Prescriptions Cephalexin (Cephalexin) 500 Mg Capsule 1 CAP PO Q8H for 7 Days, #21 CAP Prov: EBONY DURAN MD 04/15/25 Education Educated: Patient Educated regarding: diagnosis, treatment, need for follow up Signature Scribe Signature: No scribe used. Attestation: No scribe TYRESE DUNBAR MD Apr 15, 2025 15:59 EBONY DURAN MD Apr 15, 2025 22:20
--- NOTE | 2025-04-15 17:24 | RADIOLOGY REPORT ---
EXAM: CT CT HEAD INDICATION: ams TECHNIQUE: CT of the head without intravenous contrast. Radiation Dose : 1. Head: CT Dose: CTDI volume is 67 mGy. Dose-length product is 1009 mGy*cm The dose indicators for CT are the volume Computed Tomography (CT) Dose Index (CTDIvol) and the Dose Length Product (DLP), and are measured in units of mGy and mGy-cm, respectively. These indicators are not patient dose, but values generated from the CT scanner acquisition factors. The report includes radiation exposure data for exposures received during this examination. COMPARISON: MR MRI HEAD on DOS: 08/07/24, CT CT HEAD on DOS: 08/06/24, CT HEAD on DOS: 05/15/23, CT HEAD on DOS: 03/28/22 FINDINGS: There is no evidence of acute intracranial hemorrhage, extra-axial collection, mass effect, midline s hift, herniation or hydrocephalus. The ventricles, sulci and cisterns are age appropriate. The armenta-white differentiation is intact. Patchy periventricular and subcortical white matter hypoattenuation is nonspecific but may be related to small vessel ischemic disease. The visualized paranasal sinuses and mastoid air cells are clear. The surrounding soft tissues and osseous structures are unremarkable. IMPRESSION: 1. No acute intracranial abnormality. Radiation optimization: All CT scans at this facility use at least one of these dose optimization erlinda hniques: automated exposure control mA and/or kV adjustment per patient size (includes targeted exam s where dose is matched to clinical indication) or iterative reconstruction.
[2025-04-15 19:04] LABS: BILIRUBIN,URINE NEGATIVE (Neg); CLARITY,URINE CLOUDY (Clear); COLOR,URINE YELLOW (Yellow); GLUCOSE, URINE NEGATIVE (Neg); KETONES,URINE NEGATIVE (Neg); LEUKOCYTE ESTERASE ,URINE MODERATE (Neg); NITRITES, URINE NEGATIVE (Neg); OCCULT BLOOD,URINE MODERATE (Neg); PROTEIN,URINE 100 mg/dl (Neg); UROBILINOGEN,URINE 0.2 E.U/dL (0.2-1.0)
[2025-04-15 19:08] LABS: UA COLLECTION TYPE CLN CATCH MIDSTREAM
[2025-04-15 19:16] LABS: BACTERIA,URINE 4+ /HPF (Neg); RBC,URINE 20-50 /HPF (0-2); SQUAMOUS EPITHELIAL CELL,UR NONE SEEN /LPF (FEW); WBC,URINE TNTC /HPF (0-4)
[2025-04-15] MEDS ORDERED: FAMO40TA87 PO (19:44)
[2025-04-15] MEDS ORDERED: FURO-150 PO (19:44)
[2025-04-15] MEDS ORDERED: LANTUS SUBCUT (19:44)
[2025-04-15] MEDS ORDERED: ASPI-1265 PO (19:44)
--- NOTE | 2025-04-15 22:03 | [facility] CONSULT REPORT ---
[facility] Procedure Note [facility] Procedure Note Consult [facility] Note # Demographics Consult Type: General Neurology Patient Location: Emergency Room First Name: KATELIN Last Name: DEVAN Date of : 1970 Age: 55 Gender: Female Facility: [facility] Time of Initial Page (): 04/15/2025 19:26 Time of Return Call (): 04/15/2025 19:26 # HPI History: 55 y/o F with Hx of DM, blindness and stroke with residual Rt HP presents with malaise and abdominal pain. She reports her Rt HP is baseline. # Exam Time of Exam (): 04/15/2025 20:32 Mental Status: - awake - follows commands - disoriented to time - disoriented to person Language: - normal speech Cranial Nerves: - right facial droop Motor: - right upper extremity weakness - right lower extremity weakness - right drift Cerebellar: - normal cerebellar exam # Assessment Impression: baseline Rt HP # Plan Therapy/Evaluation: - PT/OT evaluation Other: - If patient has any neurological deterioration please call me back immediately # Logistics Attestation of consult completion: The patient is located at: [facility]. Facility staff participated in the visit. I performed this telemedicine visit from my offsite office utilizing interactive 2 way audio and visual telecommunication technology. Total time spent in telemedicine encounter: I spent 30 minutes reviewing clinical data and/or imaging, obtaining history, examining the patient, communicating with the onsite care team, and in preparation of this report. # Demographics First Name: KATELIN Last Name: DEVAN Facility: [facility] Electronically signed at 04/15/2025 22:00 () by Aria Mcmahon DO Neuro Consult Order placed for: Yes YOMI MCMAHON DO Apr 15, 2025 22:03
[2025-04-15] MEDS ORDERED: CEPH500C81 PO (22:16)
[2025-04-15] MEDS: cephalexin 500mg capsule PO ONE (22:34)
[2025-04-15 22:51] VITALS: BP 140/34; PULSE 75; RESP 16; O2SAT 99
== END 2025-04-15 22:59 | disposition home or self-care (01) ==
LOC: ER 12:30
DX: N17.9 Acute kidney failure, unspecified (principal); N39.0 Urinary tract infection, site not specified; R51.9 Headache, unspecified; R06.02 Shortness of breath; E11.319 Type 2 diabetes mellitus with unspecified diabetic retinopathy without macular edema; D64.9 Anemia, unspecified; T86.19 Other complication of kidney transplant; I10 Essential (primary) hypertension; Z79.4 Long term (current) use of insulin; Z88.5 Allergy status to narcotic agent; Z88.8 Allergy status to other drugs, medicaments and biological substances; Z79.82 Long term (current) use of aspirin; Y83.0 Surgical operation with transplant of whole organ as the cause of abnormal reaction of the patient, or of later complication, without mention of misadventure at the time of the procedure
CPT/HCPCS: 36415; 70450; 71045; 80048; 81001; 83880; 84484; 85025; 87077; 87088; 87186; 93005; 99285